=== PATIENT | female | born 1980 | race Caucasian/White ===

== ENCOUNTER 2021-09-05 09:32 | Outpatient (CLI) | payer MEDICAID, SELFPAY ==
--- NOTE | 2021-09-05 09:20 | CRLHL7_ITS ---
For Patients: As a result of the Century Cures Act, medical imaging exams and procedure reports are released immediately into your electronic medical record. You may view this report before your referring provider. If you have questions, please contact your health care provider. BILATERAL MAMMOGRAM WITH COMPUTER-AIDED DETECTION TECHNIQUE: CC and MLO views were obtained. These mammographic images have been obtained using full-field digital technique. These mammographic images were interpreted with the benefit of computer-aided detection. COMPARISON FILM: 06/12/2020, 04/28/2016. FINDINGS: The breasts are heterogeneously dense, which may obscure small masses IMPRESSION: There is no radiographic evidence for malignancy. ASSESSMENT: BI-RADS Category 1: Negative RECOMMENDATION: Routine screening mammogram in 1 year. A lay language report of this examination will be provided to the patient. Thai Avila M.D. Diagnostic Radiologist [email or web address] PREMA/letty saenz/Dictated by: Thai Avila MD @ 09/18/2021 11:30:00 AM (Electronically Signed)
== END 2021-09-05 09:33 | disposition home or self-care (01) ==
LOC: MAMMO 09:34
PROVIDERS: Visit Provider Physician Assistant
DX: Z12.31 Encounter for screening mammogram for malignant neoplasm of breast (principal); R92.2 Inconclusive mammogram
CPT/HCPCS: 77063; 77067

== ENCOUNTER 2021-09-17 11:22 | Inpatient (IN) | payer MEDICAID, SELFPAY ==
[2021-09-17] VITALS (32 sets, daily range): BP systolic 131–159; BP diastolic 85–101; PULSE 66–81; RESP 14–16; TEMP 35.7–37.1; O2SAT 98–100; BMI 21.7
[2021-09-17] MEDS: LACTATED RINGERS 1000 ML 1,000 ML 125 ML IV ×2 (11:30→19:53)
[2021-09-17 11:41] LABS: Hemoglobin* 11.6 gm/dL (12.0-16.0)
[2021-09-17 12:02] LABS: Ur HCG Qualitative* Negative (Negative)
--- NOTE | 2021-09-17 12:28 | P.PCN_ITS ---
Procedure Note Time Seen by Provider: 12:28 Date Seen: 09/17/21 Date of procedure: 09/17/21 Will [facility] bill your pro fee for this procedure?: Yes Procedure Description: DATE: 09/17/2021 REFERRING PHYSICIAN/PROVIDER: GERARDO Gan PREOPERATIVE DIAGNOSIS: 41-year-old with menorrhagia and uterine fibroids. POSTOPERATIVE DIAGNOSIS: Same. NAME OF PROCEDURE: Total abdominal hysterectomy. Bilateral salpingectomies. Diagnostic cystoscopy. SURGEON: Bridgett Christianson MD WATER SUPPLY ENGINEER: Theresa Goldman MD. ANESTHESIA: General endotracheal. TAPS block COMPLICATIONS: none ESTIMATED BLOOD LOSS: 150 ml URINE OUTPUT: 50 mL clear urine at the end of the procedure IV FLUID: 2800 mL DRAINS: Villagran to gravity. FINDINGS: On exam under anesthesia the uterus was palpable 2 cm below the umbilicus. On bimanual exam adnexa were without mass or fullness palpable. On laparotomy the uterus was extremely enlarged with an intramural fibroid that was calcified and firm. Both ovaries and fallopian tubes appeared normal. There were thick adhesions of the bladder to the anterior wall of the uterus and vagina PROCEDURE: After obtaining informed consent, the patient was taken to the operating room where general anesthesia was obtained without difficulty. She was prepared and draped in the normal sterile fashion in the dorsal supine position. A Villagran catheter was inserted sterilely into the bladder. A Pfannenstiel skin incision was made with a scalpel. This incision was carried down to the underlying layer of fascia with the Bovie. The fascia was incised in the midline and the incision extended laterally. The superior and inferior aspects of the fascial incision were grasped with Leobardo clamps and the underlying rectus muscles dissected off sharply. The rectus muscles were in the midline. The underlying peritoneum was identified, grasped with 2 Katie clamps and entered with Cochran scissors. The peritoneal incision was extended superiorly and inferiorly with good visualization of the bladder. The patient was placed in some mild Trendelenburg positioning. The bowels were packed cephalad using a large moistened laparotomy sponge. The Steven O retractor was placed in the incision. This provided excellent visualization of the pelvis. The pelvis was inspected with the findings noted above. Edwin clamps were placed at the cornua bilaterally for traction. Both uret ers were identified along their courses within the pelvic sidewall by palpation, patient patient body habitus made limited visualization. The right fallopian tube was grasped with a Dewey clamp and the fallopian tube removed using the Exact LigaSure dissecting forceps in sequential pedicles starting at the fimbriated end of the fallopian tube. The fallopian tube was then removed from the cornual and of the uterus and sent to pathology.The right round ligament was doubly clamped with Leobardo clamps, transected, and suture ligated with 0 Vicryl. The anterior leaf of the broad ligament was opened to the midline from the right side. Down to the level of the cervix. The right ovarian ligament was then isolated, clamped across with 2 Martell clamps, transected, and doubly suture ligated with 0 Vicryl. Hemostasis was observed. The uterine vessels were skeletonized on the right side. The vessels were clamped across with a Martell and a straight clamp, transected, and suture ligated. Excellent hemostasis was obtained. Attention was then turned to the left side. The left fallopian tube was grasped with a Johana clamp and removed similar manner to the right fallopian tube using the Exact LigaSure dissecting forceps. The left round ligament was clamped with 2 Leobardo clamps, transected, and suture ligated with 0-Vicryl. The anterior leaf of the broad ligament was opened from the left side to the midline. The bladder flap was then created bluntly. The bladder was further pushed caudally with a sponge stick. The left uterine vessels were skeletonized and then clamped across with Martell clamps, transected, and suture ligated. Excellent hemostasis was obtained. At this point the enlarged uterus was removed from the cervix using Cochran scissors. The cervix was then grasped with 2 Leobardo clamps. After both sides of the uterine blood vessels were clamped, divided and suture-ligated. The bladder was mobilized inferiorly using a sponge stick and sharp dissection. The uterus was then removed from the cervix just below the level of the uterine blood vessels to promote visualization. The remaining cardinal and uterosacral ligament attachments on both sides were c lamped with straight Martell clamps adjacent to the lower uterine segment and cervix, transected and suture ligated with 0 Vicryl. Excellent hemostasis was obtained. Two Martell clamps were placed across the vaginal cuff angles. The cervix was then transected and passed off the field. The vaginal cuff angles were fixed with Martell stitches of 0 Vicryl. The intervening vaginal cuff was closed with [id number] sutures of 0 Vicryl. There were multiple small blood vessels that were oozing between the bladder flap and the anterior vaginal wall. These were vaginal perforators. The anterior vaginal wall was oversewn with 2-0 chromic in a running locked manner. The remainder of bleeding was controlled with bipolar cautery. The abdomen and pelvis were then copiously irrigated. Small bleeding vessels were isolated with DeBakey clamps and cauterized for hemostasis. The.Villagran catheter was briefly removed. A diagnostic cystoscopy was then performed and verify that there was no evidence of injury to the bladder dome or trigone. Fluorescein was used to identify ureteral jets within the bladder to confirm ureteral function. The cystoscope was removed and Villagran catheter replaced. Attention was returned to the abdomen. The pelvis irrigated again with sterile water and hemostasis confirmed. A piece of Surgicel was placed between the anterior vaginal wall and the bladder f lap to confirm hemostasis. All laparotomy sponges and instruments were then removed. The subfascial tissues were carefully inspected and hemostasis assured. The fascia was re-approximated in a running fashion with a looped 0 Maxon loop suture. The subcutaneous tissues were copiously irrigated and hemostasis assured using bipolar cautery. The subcutaneous adipose layer was undermined to promote skin approximation. The subcutaneous adipose layer was re-approximated Using 3-0 plain gut interrupted sutures. The skin was closed in a subcuticular fashion with 4-0 Monocryl. Exofin skin adhesive applied and a Methaplex dressing placed. The patient tolerated the procedure well. Sponge, lap, needle, instrument counts were reported as correct x2. The patient was taken to recovery room michelle ke and in stable condition. She received 2 g of IV Ancef preoperatively and 30 mg IV Toradol postoperatively. The uterus was weighed at the conclusion of the procedure, weight was 820 g in the operating room. PATHOLOGY SPECIMEN(S): Uterus, cervix, left fallopian tube, right fallopian tube. Surgeon: Bridgett Christianson MD Condition: stable Disposition: PACU
--- NOTE | 2021-09-17 14:41 | SUR.OPER ---
16FR ENRIQUEZ CATHETER PLACED BY Josué AT 14:18
--- NOTE | 2021-09-17 14:52 | SUR.OPER ---
PATIENT QUESTIONS ANSWERED SATISFACTORILY PREOPERATIVELY. PATIENT BROUGHT TO OR #4 PER CART. Patient positioned supine on OR #2 bed for the intubation. Pt. legs then moved into the lithotomy position for the procedure. Perioperative team supported arms bilaterally on arm boards. Final approval of positioning by surgeon.
--- NOTE | 2021-09-17 14:57 | W.ANESCHARGE ---
Anesthesia Charges Start Date/Time Anesthesia Start Date: 09/17/21 Anesthesia Start Time: 13:53 Stop Date/Time Anesthesia Stop Date: 09/17/21 Anesthesia Stop Time: 17:05 Summary Emergency: No
--- NOTE | 2021-09-17 15:49 | P.NB_ITS ---
Nerve Block Nerve Block Date Seen: 09/17/21 Type of block requested by surgeon for post-operative analgesia: TAP Side: bilateral Time out performed: Yes Verification of patient name: Yes Verification of date of : Yes Site marking: site marked Name of person performing procedure: Devan Continuous monitoring Was continuous monitoring of O2 sat, B/P, nuclear monitoring technician, recorded every 15 minutes?: Yes Procedure Checklist: sterile prep, needles and gloves Ultrasound guided. Images saved: Yes Medications given in 5ml increments after negative aspiration: Marcaine %: 0.25 mL: 30 Needle gauge: 20 and Exparel mL: 10 Patient tolerated procedure well: Yes Additional comments: Needle noted adjacent to nerve
--- NOTE | 2021-09-17 17:03 | P.GYNPRC_ITS ---
Procedure Note Date Seen: 09/17/21 Procedure Details: PREOPERATIVE DIAGNOSIS: Myomatous uterus, history of sections x3 POSTOPERATIVE DIAGNOSIS: Myomatous uterus, history of sections x3 PROCEDURE: Total abdominal hysterectomy, bilateral salpingectomies, diagnostic cystoscopy SURGEON: Meghan POWER GENERATION TURBINE ROOM OPERATOR: Jones ANESTHESIA: General endotracheal COMPLICATIONS: None ESTIMATED BLOOD LOSS: See operative report by Dr. Christianson FINDINGS: Enlarged fibroid uterus, normal ovaries and fallopian tubes bilaterally. Normal cystoscopy. PROCEDURE NOTE: Please see the operative report by Dr. Christianson for full details of the procedure. I was asked to assist. I was scrubbed in for the entire procedure until closure of the abdominal incision. I provided assistance with the laparotomy, lysis of adhesions, visualization and retraction, and with the hysterectomy and bilateral salpingectomies from the right side, as well as with hemostasis and closure of the vaginal cuff, peritoneum, and fascia.
[2021-09-17] MEDS: HYDROmorphone 0.5 mg/0.5 ml inj IVP ×2 (17:12→19:54)
[2021-09-17] MEDS: OXYCODONE 5 MG TABLET PO (22:05)
[2021-09-17] MEDS: ONDANSETRON 2 MG/ML inj 4 MG IVP (23:41)
[2021-09-18] VITALS (9 sets, daily range): BP systolic 115–133; BP diastolic 74–88; PULSE 69–120; RESP 16–18; TEMP 36.6–37.2; O2SAT 97–100
[2021-09-18] MEDS: KETOROLAC 30 MG/ML inj IVP ×2 (00:16→05:31)
[2021-09-18] MEDS: PROMETHAZINE 25 MG/ML INJ 12.5 MG IV ×2 (00:34→09:25)
[2021-09-18] MEDS: HYDROmorphone 0.5 mg/0.5 ml inj IVP (01:58)
[2021-09-18] MEDS: LACTATED RINGERS 1000 ML 1,000 ML 125 ML IV (04:31)
[2021-09-18] MEDS: ONDANSETRON 2 MG/ML inj 4 MG IVP (05:29)
--- NOTE | 2021-09-18 08:50 | P.GYNPN_ITS ---
DELIVERY DIRECTOR - A/P Assessment and plan (1) Status post total abdominal hysterectomy: Start date: 09/17/21 Start time: 14:00 Problem details: with bilateral salpingectomy Status: Acute Assessment and Plan: POstop care Plan Postop day 1. Status post total abdominal hysterectomy, bilateral salpingectomy and diagnostic cystoscopy Postoperative Procedures: Procedures Operation Date: 09/17/21 13:10 Actual Procedure Side Surgeon p Total Abd Hysterectomy, bilateral Salpingectomy Joe Solis MD Postoperative day: 1 Postoperative status: doing well Postoperative plan: routine post-op care, advance diet and other (Postop day 1 hemoglobin is pending. Discontinue Quinn catheter. Encourage ambulation. Planning discharge home tomorrow.) Time Spent With Patient Time: Total time spent is greater than 50% in coordination of care (as documented) at patient's floor/unit and/or counseling patient: Time with patient: less than 15 minutes DELIVERY DIRECTOR- PN:Subj Post-Op Subjective Time Seen by Provider: 08:15 Date Seen: 09/18/21 Post Operative Details: Post-operative day number 1: status post total abdominal hysterectomy, bilateral salpingectomy, diagnostic cystoscopy Subjective: pain is well controlled, patient reports nausea and other (States her pain is relatively well controlled. She had problems with nausea and emesis after taking 2 tablets of oxycodone on an empty stomach at midnight. I recommended not taking narcotic pain medication on a empty stomach: Take it with either crackers or toast and have the nurse give her Zofra) DELIVERY DIRECTOR-PN: Obj Exam Physical Exam: Vital signs: Temp Pulse Resp BP Pulse Ox 98.5 F 75 18 115/74 97 09/18/21 03:00 09/18/21 03:00 09/18/21 03:00 09/18/21 03:00 09/18/21 03:00 Narrative: General: Pleasant, , well groomed, woman in no acute distress. Vital signs: Her medical record. Heart: Regular rate and rhythm without gallop, rub or murmur. Chest: Clear auscultation bilaterally. Abdomen: Appropriately tender to palpation. Mildly distended. Normal bowel sounds throughout. No CVA or flank tenderness. Incision: Dressing removed. Clean, dry and intact with sutures and skin adhesive gel. Extremities: SCDs in place. No edema, pain or cyanosis. Urinary Catheter Management: Urethral: Cath placed during this visit: yes Urethral indwelling: Yes Reason for continuing: decision to DC catheter (D/C quinn today) Insertion date: 09/17/21 Insertion time: 13:00 DELIVERY DIRECTOR - PN: Obj Data Labs Labs: Laboratory Results - last 24 hr 09/17/21 09/17/21 09/17/21 11:22 11:33 11:33 Hgb 11.6 L Urine HCG, Qual Negative Blood Type A Positive Antibody Screen NEGATIVE Procedures Procedures Performed: Postop rounding.
[2021-09-18] MEDS: SODIUM CHLORIDE 0.9 % (FLUSH) 10 ML SYRINGE IVF (09:26)
[2021-09-18] MEDS: LORazepam 0.5 MG TABLET PO (09:26)
[2021-09-18] MEDS: diphenhydrAMINE 25 MG CAPSULE PO (09:27)
[2021-09-18] MEDS: IBUPROFEN 600 MG TABLET PO ×2 (12:59→17:56)
--- NOTE | 2021-09-18 16:24 | PC.NURSE ---
Pt had extreme nausea at initial assessment. Please see eMar for multiple medications provided for her sx. Pt was able to rest well w/o vomiting after she got up to the recliner. Mother Rebecca supportive at bedside. Later in the shift pt was able to ambulate in the hallway with SBA, splinting her abdomen with a pillow and pain 3-4. Tolerating regular diet w/o further nausea. IV to SL and quinn catheter d/c'ed. Pt has not voided since quinn removed. Report to Romi TORREZ for evening shift.
[2021-09-18] MEDS: SIMETHICONE 80 MG TAB.CHEW 160 MG PO (17:20)
[2021-09-18 21:09] LABS: Hematocrit 23.4 % (33.0-51.0); Mean Corpuscular HGB Conc 31 gm/dL (32-36); Mean Corpuscular Hemoglobin 26 pg (26-34); Mean Corpuscular Volume 83 fL (80-100); Platelet Count* 275 K/uL (140-440); Red Blood Count 2.83 m/uL (4.00-5.20); White Blood Count* 12.12 K/uL (4.50-11.00)
[2021-09-18 21:12] LABS: Hemoglobin* 7.3 gm/dL (12.0-16.0)
--- NOTE | 2021-09-18 22:41 | PC.NURSE ---
Shift [id number]- Patient rates pain 2-4/10 this shift, radiating to right shoulder. Simethicone and scheduled pain medication given with relief. She denies nausea and is tolerating advancing diet. Heart rate is elevated- MD notified- see new orders. Patient denies palpitations, chest pain, or shortness of breath. Abdomen is soft, but tender to right lower side. Incision site is somewhat edematous, but approximated. Abdominal binder remains in place. Patient is voiding large amounts. She walks the halls and tolerates well.
[2021-09-19] VITALS (13 sets, daily range): BP systolic 105–139; BP diastolic 76–89; PULSE 82–95; RESP 16–18; TEMP 36.8–37.1; O2SAT 97–100
[2021-09-19] MEDS: IBUPROFEN 600 MG TABLET PO ×2 (01:10→08:19)
--- NOTE | 2021-09-19 06:48 | PC.NURSE ---
END OF SHIFT NOTE: PT PLEASANT AND COOPERATIVE. VSS AND WNL ON RA. AFEBRILE. PT VOIDING WITHOUT ISSUE; URINE COLOR LIGHT RHINA, PINK WITH FEW CLOTS NOTED. AMBULATES INDEPENDENTLY WITHOUT DIFFICULTY. PT RECEIVED 2 UNITS OF PRBC. NO ADVERSE REACTIONS NOTED. LOWER ABDOMINAL INCISION INTACT AND OPEN TO AIR. ORAL INTAKE ADEQUATE. SLEPT WELL THROUGHOUT THE NIGHT.
[2021-09-19 07:17] LABS: Hemoglobin* 9.5 gm/dL (12.0-16.0)
[2021-09-19] MEDS: DOCUSATE SODIUM 100 MG CAPSULE PO (08:20)
--- NOTE | 2021-09-19 12:15 | PC.NURSE ---
Patient pleasant and cooperative. surgical site glued and SEAN. Ibuprofen for pain, pt denied need for narcotics at this time. pt up ambulating in halls and tolerating well. urine [place] related to drainage. pt denies passing clots post op. LS CTA. BS active. discharge instructions provided and pt verbalized understanding. medications sent to [facility]. spouse present for transport. pt discharged with f/u appointment on 10/[address] Goldman. Pt d/c'd via w/c at 1100 home with spouse.
[2021-09-19 23:42] LABS: Slide Review Reflex No
--- NOTE | 2021-11-05 11:15 | P.DS_ITS ---
DS: Providers Provider Date Seen: 09/19/21 Date of admission: 09/17/21 11:22 Primary care physician: Dm Rush MD Admitting Clinician: Bridgett Christianson MD Attending Physician on discharge: Bridgett Christianson MD DS: Diagnosis Discharge Diagnosis (1) Status post total abdominal hysterectomy: Status: Acute Problem details: with bilateral salpingectomy COMMISSIONING EDITOR-Discharge Summary Hospital Course Hospital Course Narrative: Patient is a 41 year old woman admitted for Total abdominal hysterectomy with bilateral salpingectomy and cystoscopy on 09/17/2021. Intraoperative findings were notable for enlarged uterus with intramural fibroid, and thick adhesions of the bladder to the anterior uterus. Surgery was uncomplicated. Indication for surgery: Symptomatic uterine fibroids. Postoperative course was notable only for symptomatic anemia, with hemoglobin chiara 7.3. She received 2 units packed red cells in transfusion. Vitals have since been stable. She has remained afebrile. On postoperative day 2, she reports the pain is well controlled. She has been able to ambulate Without difficulty. She is tolerating regular diet. She is passing flatus. Villagran catheter has been removed, and she is voiding without difficulty. Time Spent with Patient Time attestation: Total time spent providing and/or coordinating discharge services: Time spent: Less than 30 minutes COMMISSIONING EDITOR - Exam Physical Exam: Vital signs: Temp Pulse Resp BP Pulse Ox O2 Del Method 98.5 F 84 16 139/89 98 09/19/21 08:38 09/19/21 08:38 09/19/21 08:38 09/19/21 08:38 09/19/21 08:38 09/19/21 08:38 Narrative: General: Pleasant, no acute distress Heart: Regular rate and rhythm, no murmur or gallop Lungs: Clear to auscultation bilaterally Abdomen: Normoactive bowel sounds in all 4 quadrants. Soft, appropriately tender, no rebound or guarding, incision clean, dry, and intact Lower extremities: No edema or erythema COMMISSIONING EDITOR - DS: Data Procedures Procedures: Procedures Operation Date: 09/17/21 13:10 Actual Procedure Side Surgeon p Total Abd Hysterectomy, bilateral Salpingectomy Bilateral Bridgett Solis MD Discharge Plan Discharge Disposition: Home, Self-Care Date of Admission: 09/17/21 11:22 Attending Provider on Discharge: lAexandra Wilks Primary Care Provider: Dm Rush Condition: Stable Anticipated Discharge Date/Time: 09/19/21 09:34 Discharge Medications: New docusate sodium 100 mg Capsule 100 mg PO BID PRN (Reason: Constipation) Qty: 60 0RF ibuprofen 600 mg Tablet 600 mg PO Q6H Qty: 60 0RF No Action Tylenol Discharge Orders: Discharge Order (Routine); Ordered 09/19/21 Ordered By: Alexandra Wilks Patient Education: Iron Supplements (By mouth), Acetaminophen (By mouth), Ibuprofen (By mouth), Laxative, Stool Softeners (By mouth), Oxycodone, Rapid Release (By mouth), Surgical Site Infections (DC), Hysterectomy (DC) Activity Restrictions/Additional Instructions: Discharge instructions were reviewed with the patient including signs and symptoms of infection and home going medications. Symptoms to report to doctor: -Bleeding that saturates more than one pad per hour ?-Passing clots larger than the size of a golf ball ?-Pain not relieved by prescribed medication ?-Fever above 100.4 degrees Fahrenheit ?-A foul vaginal odor ?-Difficulty in emotions, mood and functions ?-Thoughts of hurting yourself and/or ?-Painful, reddened area in your breast ?-Any drainage, redness or tenderness in your IV/epidural site ?-Severe headache that doesn't improve after taking medications ?-Changes in vision, including temporary loss of vision, blurred vision, and/or light sensitivity ?-Upper abdominal pain (usually under ribs on the right side) ?-Decrease in urination or painful, frequent urinating ?-Chest pain ?-Shortness of breath ?-Tenderness or pain with redness and/swelling in the calf(s) of your leg? ? No lifting greater than 20 pounds for 6 weeks. Nothing per vagina for 6 weeks. Off work or school for 6 weeks. No driving well taking narcotic pain medications: Approximately 2 weeks. No high impact or core exercises for 6 weeks. Walking and walking up and down stairs are safe. ? Follow up with your surgeon in 2-3 weeks for a postoperative visit or sooner as needed. Activity Level: No strenuous activity Activity Detail: Hospital Course: Senia was admitted to the hospital on 09/17/2021 for a scheduled total abdominal hysterectomy, bilateral salpingectomy and diagnostic cystoscopy. Her surgery was uncomplicated. Her postoperative course was also uncomplicated. By postoperative day 2, she was tolerating a regular diet, ambulating without difficulty, passing flatus and pain was well controlled with oral pain medications. She would like to be discharged home today. Labs: Preoperative hemoglobin 11.6, postoperative hemoglobin 7.3 on the evening of postoperative day 1. She was noted to be tachycardic at that time, but otherwise asymptomatic. She received 2 units of packed red cells in transfusion. Hemoglobin on the morning of postoperative day 2 was 9.5. Objective: General: Alert and oriented x3. Pleasant, woman in no acute distress. Vital signs: See EMR. Heart: Regular rate and rhythm without gallop, rub or murmur. Chest: Clear to auscultation bilaterally. Abdomen: Soft, nontender, nondistended with normal bowel sounds.. Incision(s): Clean, dry and intact w/ sutures and skin adhesive. Pelvic: Minimal vaginal bleeding, remainder of pelvic exam deferred. Extremities: No pain, edema, cyanosis or clubbing. Assessment: 41-year-old postoperative day 2 from a total abdominal hysterectomy with bilateral salpingectomy doing well. Plan: 1. Discharge home today. 2. Activity restrictions reviewed with the patient. 3. Return to clinic to see Dr. Christianson for a postoperative visit in 2-3 weeks. Discharge Diet: Regular Follow Up Appointments: Dm Rush MD [Primary Care Provider] - Theresa Goldman MD [Staff Physician] - 10/04/21 9:30 am Forms: Work/Release Restrictions
== END 2021-09-19 11:00 | disposition home or self-care (01) | DRG 519 ==
LOC: OR 09-18 05:31 → MEDSURG 09-18 05:31
PROVIDERS: Admitting Provider Obstetrics & Gynecology; PCP Family Medicine; Visit Provider Obstetrics & Gynecology
PROC: 0UT94ZZ Resection of Uterus, Percutaneous Endoscopic Approach (ICD-10-PCS; CPT 52000; principal; 2021-09-17 13:00)
DX: D25.1 Intramural leiomyoma of uterus (principal); N92.0 Excessive and frequent menstruation with regular cycle; R11.2 Nausea with vomiting, unspecified; D62 Acute posthemorrhagic anemia; E04.9 Nontoxic goiter, unspecified; E78.00 Pure hypercholesterolemia, unspecified
CPT/HCPCS: 00840; 36415; 36430; 81025; 85018; 85025; 85027; 86850; 86900; 86901; 86922; 88307; A9270; C9290; J0330; J1100; J1170; J1885; J2250; J2405; J2550; J2704; J3010; J3475; J3490; J7120; P9016

== ENCOUNTER 2021-10-23 19:53 | Emergency (ER) | payer MEDICAID, SELFPAY ==
[2021-10-23 20:27] VITALS: BP 146/82; PULSE 119; RESP 18; TEMP 38.8; O2SAT 98; BMI 21.6
[2021-10-23 21:03] LABS: Appearance Urine Cloudy (Clear); Bilirubin Urine Negative (Negative); Blood Urine 2+ (Negative); Color Urine Yellow (Yellow); Glucose Urine Negative (Negative); Ketones Urine 1+ (Negative); Leukocyte Esterase Urine 1+ (Negative); Nitrite Urine Positive (Negative); Protein Urine 3+ (Negative)
[2021-10-23 21:08] LABS: Squamous Epithelial Cell Urine Few (None-Few)
[2021-10-23 21:09] LABS: Bacteria Urine Many
[2021-10-23 21:29] LABS: PCR FLU A Negative PCR FLU A (Negative); PCR FLU B Negative PCR FLU B (Negative)
[2021-10-23 21:52] LABS: SARS PCR* Negative SARS-CoV-2 (Negative)
--- NOTE | 2021-10-23 22:59 | ED.GENADULT ---
HPI - General Adult General Date Seen: 10/23/21 Chief complaint: Fever Stated complaint: Fevers/Abdominal Pain Time Seen by Provider: 10/23/21 22:26 Source: patient and family Mode of arrival: ambulatory Limitations: no limitations History of Present Illness HPI narrative: Patient is a delightful 41-year-old female who presents here with a fever lower abdominal discomfort, mild constipation, dysuria frequency of urination. She has had previous UTIs and says this feels similar to them. What worries her however she underwent a hysterectomy at this institution approximately 3 weeks ago. She has had a little bit of back discomfort with this, no rashes, no coughing or COVID like symptoms. She is unvaccinated for COVID. She took 2 home test which were negative. Denies any other vomiting, appetites been good, and she has had no real significant vaginal discharge. Symptoms have been going on for the past 2-3 days, she waited a significant time. Our ER to be seen. Location: abdomen Radiation: back Severity: moderate Quality: sharp Pain Consistency: constant Associated symptoms: denies other symptoms Treatments prior to arrival: none Related Data Home Medications Medication Instructions Recorded Confirmed Tylenol 10/23/21 Previous Rx's Medication Instructions Recorded rosuvastatin 20 mg tablet 20 mg PO QDAY #90 tabs 09/05/21 docusate sodium 100 mg capsule 100 mg PO BID PRN Constipation #60 09/19/21 caps ferrous sulfate 325 mg (65 mg 325 mg PO BID 2 weeks #28 tabs 09/19/21 iron) tablet ibuprofen 600 mg tablet 600 mg PO Q6H #60 tabs 09/19/21 Allergies Allergy/AdvReac Type Severity Reaction Status Date / Time No Known Allergies Allergy Unknown Verified 10/23/21 20:32 Review of Systems Status of ROS: Reports: 10 or more systems reviewed and unremarkable except as noted in History and below PFSH PFSH Surgical History Previous section Status post total abdominal hysterectomy (09/17/21) Family History Father Coronary artery disease High blood pressure Hyperlipidemia Diabetes Mother Coronary artery disease Hyperlipidemia High blood pressure Thyroid disease Paternal Grandfather Colon cancer Maternal Grandmother Stroke Social History 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 Ages 12, 14, 16. Lives in [place] and works in [place]. Habits: Walks 3 times per week for exercise. No tobacco or recreational drug use. Alcohol use is 1 or 2 drinks per week. Smoking Status: Never smoker How often do you have a drink containing alcohol: 2-4 times a month AUDIT-C Alcohol total score: 2 Non-prescribed substance use: denies use Exam Narrative: Exam Narrative: Patient is peaking normally, problem with slurring words, oriented x3. Head eyes ears nose and throat exam show equal pupils, no scleral icterus, extraocular muscles are normal, no facial droop, speech is normal, trachea normal and midline. Thyroid normal midline palpable not enlarged. Chest shows symmetrical rise bilaterally, normal auscultation with no wheezes, no increased work of breathing, no overt bruising or lesions seen, no tenderness is noted on auscultation. Heart sounds normal with no S3-S4 no murmurs clicks or gallops. Abdomen shows no obvious masses or hepatosplenomegaly, no organomegaly, bowel sounds are normal in all quadrants. No tenderness is noted also in all quadrants. Upper and lower extremities show normal power, normal range of motion, pulses are normal, sensations normal, fine motor movements are normal, pelvis is stable to rocking. Cervical spine shows normal range of motion, and palpably not tender. Thoracic spine shows normal range of motion, and palpably not tender, lumbar spine shows no tenderness to palpation percussion and is otherwise normal range of motion. Skin shows no rashes, petechiae or eccymosis. Mild tenderness on percussion over the CVA areas bilaterally Const: Vital Signs, click to edit/add: Vital Signs - 24 hr 10/23/21 20:27 Temperature 102 F H Pulse Rate [Left P ulse Oximeter] 119 H Respiratory Rate 18 Blood Pressure [Ri ght Upper Arm] 146/82 H Pulse Oximetry 98 Oxygen Delivery Me thod Room Air Documenting provider has reviewed patient's vital signs: yes Course Vital Signs Vital signs: Initial Vital Signs Temperature 102 F H 10/23/21 20:27 Temperature Source Temporal Artery Scan 10/23/21 20:27 Pulse Rate 119 H 10/23/21 20:27 Respiratory Rate 18 10/23/21 20:27 Blood Pressure 146/82 H 10/23/21 20:27 Blood Pressure Mean 103 10/23/21 20:27 Blood Pressure Position Sitting 10/23/21 20:27 Pulse Oximetry 98 10/23/21 20:27 Oxygen Delivery Method 10/23/21 20:27 Vital Signs Temperature 102 F H 10/23/21 20:27 Pulse Rate 119 H 10/23/21 20:27 Respiratory Rate 18 10/23/21 20:27 Blood Pressure 146/82 H 10/23/21 20:27 Pulse Oximetry 98 10/23/21 20:27 Oxygen Delivery Method 10/23/21 20:27 Temperature 102 F H 10/23/21 20:27 Pulse Rate 119 H 10/23/21 20:27 Respiratory Rate 18 10/23/21 20:27 Blood Pressure 146/82 H 10/23/21 20:27 Pulse Oximetry 98 10/23/21 20:27 Oxygen Delivery Method 10/23/21 20:27 Medical Decision Making MDM Narrative Medical decision making narrative: Life-threatening differential diagnosis is include meningitis, encephalitis, pneumonia, intra-abdominal infection, bacteremia, other differential diagnosis include but are not limited to viral upper respiratory tract infection, strep, urinary tract infection, skin infection, osteomyelitis, influenza, fungal infections, diskitis, epidural abscess, or fever of unknown origin. I do think this is a UTI after reviewing the laboratory work, this may be even early pyelonephritis, she tells me that Macrobid has worked well in the past for her, but given the fact this could be a pyelonephritis I think Levaquin is a better option here. We went over the risks benefits and side effects and I would like to dose her with this. She was comfortable with this, she can use Tylenol ibuprofen as an outpatient. Return here if increasing abdominal pain chest pain or other symptoms which we discussed. Medical Records Medical records reviewed: Yes I reviewed the patient's medical records Lab Data Lab results reviewed: Yes I reviewed the patient's lab results Labs: Lab Results 10/23/21 10/23/21 Range/Units 20:38 20:40 Urine Color Yellow (Yellow) Urine Appearance Cloudy A (Clear) Urine pH 7.0 (5.0-8.5) Ur Specific [place] 1.020 (1.000-1.030) Urine Protein 3+ A (Negative) Urine Glucose (UA) Negative (Negative) Urine Ketones 1+ A (Negative) Urine Blood 2+ A (Negative) Urine Nitrite Positive A (Negative) Urine Bilirubin Negative (Negative) Urine Urobilinogen 4.0 (0.2-1.0) Ur Leukocyte Esterase 1+ A (Negative) Urine RBC 2-5 A (0-2) Urine WBC 10-25 A (0-5) Ur Squamous Epith Cells Few (None-Few) Urine Bacteria Many A (None) SARS-CoV-2 (PCR) Negative SARS-CoV-2 (Negative) Influenza Type A (PCR) Negative PCR FLU A (Negative) Influenza Type B (PCR) Negative PCR FLU B (Negative) Discharge Plan Discharge Clinical Impression: Urinary tract infection Patient Disposition: Home, Self-Care Condition: Stable Instructions: Urinary Tract Infection in Women (DC) Additional Instructions: Home rest lots of fluids Tylenol or ibuprofen tonight will help amazingly make you feel better, start the Levaquin tonight, increasing abdominal pain nausea vomiting then I suggest follow-up. Prescriptions: No Action rosuvastatin 20 mg tablet 20 mg PO QDAY Qty: 90 1RF docusate sodium 100 mg Capsule 100 mg PO BID PRN (Reason: Constipation) Qty: 60 0RF ibuprofen 600 mg Tablet 600 mg PO Q6H Qty: 60 0RF ferrous sulfate 325 mg (65 mg iron) tablet 325 mg PO BID 14 Days Qty: 28 0RF Tylenol Follow Up/Referrals: Dm Rush MD [Primary Care Provider] - Stand Alone Forms: MyHealth Info Instructions
[2021-10-23] MEDS: levoFLOXacin 500 MG TABLET PO (23:31)
[2021-10-23] MEDS: ACETAMINOPHEN 500 MG TABLET 1000 MG PO (23:31)
== END 2021-10-23 23:40 | disposition home or self-care (01) ==
LOC: ED 22:47
PROVIDERS: Family Medicine; Emergency Provider Family Medicine; PCP Family Medicine
DX: N39.0 Urinary tract infection, site not specified (principal)
CPT/HCPCS: 81003; 81015; 87086; 87186; 87502; 87635; 99283; 99284; A9270

== ENCOUNTER 2021-11-01 08:15 | Outpatient (CLI) | payer MEDICAID, OTHER, SELFPAY ==
--- NOTE | 2021-11-01 08:15 | CRLHL7_ITS ---
For Patients: As a result of the Century Cures Act, medical imaging exams and procedure reports are released immediately into your electronic medical record. You may view this report before your referring provider. If you have questions, please contact your health care provider. INDICATION: Nontoxic goiter. TECHNIQUE: Ultrasound thyroid with alegria-scale and color Doppler analysis. COMPARISON: None. FINDINGS: Right lobe: 3.9 x 1.1 x 0.9 cm. Left lobe: 3.3 x 1.0 x 0.9 cm. Mildly heterogeneous echotexture. Nodules: Exophytic posterior inferior right thyroid nodule versus parathyroid lesion. The nodule is isoechoic to slightly hypoechoic solid circumscribed nodule with no echogenic foci. The nodule measures 9 x 8 x 6 mm. No other thyroid nodules. Color Doppler analysis demonstrates normal vascularity. The isthmus is normal. No evidence of lymphadenopathy. IMPRESSION: 1. Right inferior posterior thyroid TR3 nodule versus parathyroid adenoma or other lesion. Nodule measures 9 x 8 x 6 mm. 2. No evidence of goiter. The thyroid is slightly atrophic with heterogeneous echotexture. Dictated by Amandeep Pugh MD @ 11/01/2021 9:09:32 AM (Electronically Signed)
--- OUTSIDE RECORDS SUMMARY | 2021-11-01 08:18 | XMS_ITS | Clinical Summary ---
:1980 Author Organization [facility] [place] [address] Care Team Providers Name Role Phone Peter Greco MD Primary Care Provider Allergies No known active allergies Medications No known medications Active Problems Problem Noted Date Previous delivery, antepartum condition or co mplication 10/23/2009 Encounters Date Type Specialty Care Team Description 10/23/2021 Travel 10/23/2021 Nurse Triage Wander Cabrera MD Abdo ismael Injury 09/17/2021 Lab Requisition Bridgett Christianson MD from Last 3 Months Immunizations Name Administration Dates Next Due Tdap 10/26/2009 Social History Tobacco Use Types Packs/Day Years Used Date Never Smoker Smokeless Tobacco: Never Used Alcohol Use Standard Drinks/Week Comments Not Currently 0 (1 standard drink = 0.6 oz pure alcoho l) Sex Assigned at Date Recorded Not on file COVID-19 Exposure Response Date Recorded In the last 10 days, have you been in contact with No / Unsu re 10/23/2021 6:09 PM CDT someone who was confirmed or suspected to have Coronavirus/COVID-19? Obstetrics History Para Term AB IAB SAB Ectopic Multiple Living Live Births 4 2 2 0 1 0 1 0 0 2 2 Date Outcome GA Total Labor/2nd/3rd Weight Sex Delivery Anes PTL Manjula A 1 A5 Name Clin Labor 12/19 SAB 04 Comments: no D&C 05/2005 Term 41w0d 4h 00m/ 3.52 kg (7 lb 12 oz) F Spinal N Living Delivery Location: [place] Comments: 2 day induction - CPD & FTP 11/2006 Term 39w0d 3.54 kg (7 lb 13 oz) F Spinal N Living Delivery Location: [place] Comments: Repeat c/s Last Filed Vital Signs Vital Sign Reading Time Taken Comments Blood Pressure 122/95 09/05/2020 1:01 PM CDT Pulse 80 09/05/2020 1:01 PM CDT Temperature 36.6 ??C (97.8 ??F) 09/05/2020 1:01 PM CDT Respiratory Rate 16 09/05/2020 1:01 PM CDT Oxygen Saturation 99% 09/05/2020 1:01 PM CDT Inhaled Oxygen Concentration - - Weight 59.3 kg (130 lb 12.8 oz) 09/05/2020 1:01 PM CDT Height 165.8 cm (5' 5.28) 08/30/2020 1:37 PM CDT Body Mass Index 21.58 08/30/2020 1:37 PM CDT Plan of Treatment Health Maintenance Due Date Last Done Comments COVID-19 vaccine series (#1) 01/20/1979 Depression screening for age 12+ 1990 BMI (ht and wt on same day) for age 18+ 1996 Hepatitis C screening for age 18-79 1996 Tetanus booster 10/27/2019 10/26/2009 Influenza for age 9-49 10/31/2021 Pap test for age 21-65 07/04/2024 07/04/2021, 07/04/2021 Tdap Completed 10/26/2009 Procedures Procedure Name Priority Date/Time Associated Diagnosis Comme nts PATH TISSUE EXAM Routine 09/17/2021 3:40 PM Resul ts for this CDT procedure are i n the results section. LAB TRACKING EVENT Routine 09/17/2021 2:55 PM CDT from Last 3 Months Results PATH TISSUE EXAM (09/17/2021 3:40 PM CDT) Component Value Ref Test Analysis Performed At [facility] gist Range Method Time Signature Case Report Pathology Report ?Case: [id number] ? 09/19/2021 [facility] Authorizing Provider: ??Bridgett Celaya ?Collected: ? 09/17/2021 1540 ? 4:30 PM HEAL TH ? MD Ana María ? CDT LABORATORY-C Ordering Location: ? [facility] ?Received: ?09/17/20212057 ? EN TRAL Pathologist: ? Negrita Garnica MD ? LABORATORY Specimen: ?Uterus ? Final B) UTERUS WITH CERVIX AND FA LLOPIAN TUBES, TOTAL HYSTERECTOMY WITH BILATERAL SALPINGECTOMY: 09/19/2021 [facility] Regi ctronically Diagnosis 1. Cervix: No significant histologic abnormality 4:30 PM HEALTH signed by Danika, 2. Endometrium: Proliferative phase CDT LABORATORY-C Negrita Urias, 3. 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 Uterine serosa: Unremarkable LABORATORY at 4:30 PM 5. Fallopian tubes: Benign paratubal cysts, otherwise unrema rkable 6. Uterine weight: 796 grams 7. Negative for malignancy Clinical Myomatous uterus. 09/19/2021 [facility] Information 4:30 PM HEALTH CDT LABORATORY-C ENTRAL LABORATORY Gross A) Received in formalin, lab eled with the patient's name and uterus with bilateral fallopian tubes, is a 796 gram(uterus and cervix weight only), 15 x 10.5 x 10 cm hysterectomy specimen with detached 09/19 [facility] Description 4 x 3.5 x 2 cm cervix. The e ctocervical mucosa is smooth with a distinct squamocolumnar junction. The endocervical canal is patent. 4:30 PM HEALTH CDT LABORATORY-C The endometrium is red-pimentel s mooth and averages 0.3 cm thick. No endometrial lesions are identified. ??There is a solitary anterior pimentel whorled nodule measuring 9.8 x 9 x 8.2 cm. ??No discrete foci of he ENTRAL morrhage or necrosis are luh reciated. ??The myometrium is pimentel firm and trabecular. ??The myometrial thickness averages 1.7 cm cm thick. The serosa is smooth. LABORATORY The bilateral fimbriated fal lopian tubes are undesignated and averages 6 cm in length by 0.6 cm in diameter. ??Multiple smooth lined serous fluid-filled paratubal cystic structures are noted upon both t ubes surfaces ranging from 0 .1 to 0.8 cm in greatest dimension. ??No papillations are identified. Foot Drill Operator sections are submitted: 1. Anterior cervix 2. Posterior cervix 3. Anterior endomyometrium 4. Posterior endomyometrium 5-6. ??Fallopian tubes including entire fimbriated end 7-16. ??Sampling of pimentel whorled nodule Time and date in formalin: 1540 on 09/17/2021 [facility] 09/18/2021 Microscopic The final diagnosis is based on microscopic examination of appropriate sections of all specimens. 09/19/2021 JENNIFER ROSE Description 4:30 PM HEALTH CDT LABORATORY-C ENTRAL LABORATORY Additional 09/19/2021 [facility] Information Interpreted at [facility], Central Laboratory - [address], [place] [address] 4:30 PM HEALTH CDT LABORATORY-C ENTRAL LABORATORY Specimen Anatomical Collection Method Collection Time Receive d Time (Source) Location / / Volume Laterality Other SPECIMEN FROM 09/17/2021 3:40 PM 09/18/19 8:58 UTERUS / Unknown CDT PM CDT Bridgett Christianson MD PATHOLOGY/CYTOLOGY Performing Organization Address City/State/ZIP Code Phon e Number [facility] [address] [place] [address] LABORATORY-CENTRAL 2000 LABORATORY LAB TRACKING EVENT (09/17/2021 2:55 PM CDT) Specimen Anatomical Collection Method Collection Time Receive d Time (Source) Location / / Volume Laterality Other (Other) Client Collect / 09/17/2021 2:55 PM 08/30 8:45 Unknown CDT PM CDT Bridgett Christianson MD LAB BILL ONLY Performing Organization Address City/[facility]/ZIP [facility] Phon e Number [facility] [address] [place] [address] LABORATORY-CENTRAL 2000 LABORATORY from Last 3 Months Insurance Payer Benefit Plan / Subscriber ID Effective Dates Phone Addre ss Type Group BLUE CROSS BLUE CROSS OF [id number] 2020-Present [address] [place] [address] Advance Directives Latest Code Status on File Code Status Date Activated Date Inactivated Comments Full Code 10/23/2009 1:29 PM 10/26/2009 3:53 PM Full Code 10/23/2009 10:48 AM 10/23/2009 1:29 PM Care Teams Trimmer [employer] Relationship Specialty Start Date End Date Peter Greco MD PCP - General Family Practice 09/03/20
== END 2021-11-01 08:16 | disposition home or self-care (01) ==
LOC: US 08:16
PROVIDERS: PCP Family Medicine; Visit Provider Family Medicine
DX: E04.9 Nontoxic goiter, unspecified (principal)
CPT/HCPCS: 76536

== ENCOUNTER 2021-11-20 15:24 | Outpatient (CLI) | payer OTHER, SELFPAY ==
--- OUTSIDE RECORDS SUMMARY | 2021-11-20 15:27 | XMS_ITS | Clinical Summary ---
:1980 Author Organization [facility] [place] [address] Care Team Providers Name Role Phone Peter [...] oz) F Spinal N Living Delivery Location: [place] Comments: 2 day induction - CPD & FTP 11/2006 Term 39w0d 3.54 kg (7 lb 13 oz) F Spinal N Living Delivery Location: [place] Comments: Repeat c/s Last Filed Vital Signs [...] Component Value Ref Test Analysis Performed At [facility] gist Range Method Time Signature Case Report Pathology Report ?Case: [id number] ? 09/19/2021 [facility] Authorizing Provider: ??Bridgett Celaya ?Collected: ? 09/17/2021 1540 ? 4:30 PM HEAL TH ? MD Ana María ? CDT LABORATORY-C Ordering Location: ? [facility] ?Received: ?09/17/20212057 ? EN TRAL Pathologist: ? [...] in greatest dimension. ??No papillations are identified. Measurement Department Chief Clerk sections are submitted: 1. Anterior cervix 2. [...] LABORATORY Additional 09/19/2021 [facility] Information Interpreted at [facility], Central Laboratory - [address], [place] [address] 4:30 PM HEALTH CDT LABORATORY-C ENTRAL LABORATORY Specimen Anatomical Collection Method Collection Time Receive d Time (Source) Location / / Volume Laterality Other SPECIMEN FROM 09/17/2021 3:40 PM 09/18/19 8:58 UTERUS / Unknown CDT PM CDT Bridgett Christianson MD PATHOLOGY/CYTOLOGY Performing Organization Address City/State/ZIP Code Phon e Number [facility] [address] [place] [address] LABORATORY-CENTRAL 2000 LABORATORY LAB TRACKING EVENT (09/17/2021 2:55 PM CDT) Specimen Anatomical Collection Method Collection Time Receive d Time (Source) Location / / Volume Laterality Other (Other) Client Collect / 09/17/2021 2:55 PM 08/30 8:45 Unknown CDT PM CDT Bridgett Christianson MD LAB BILL ONLY Performing Organization Address City/[facility]/ZIP [facility] Phon e Number [facility] [address] [place] [address] LABORATORY-CENTRAL 2000 LABORATORY from Last 3 Months Insurance Payer Benefit Plan / Subscriber ID Effective Dates Phone Addre ss Type Group BLUE CROSS BLUE CROSS OF [id number] 2020-Present [address] [place] [address] Advance Directives Latest Code Status on File Code Status Date Activated Date Inactivated Comments Full Code 10/23/2009 1:29 PM 10/26/2009 3:53 PM Full Code 10/23/2009 10:48 AM 10/23/2009 1:29 PM Care Teams Olericulture Professor Relationship Specialty Start Date End Date Peter Greco MD PCP - General Family Practice 09/03/20
[2021-11-20 17:51] LABS: TSH With Reflex to FT4* 0.944 uIU/mL (0.270-4.200)
== END 2021-11-20 15:25 | disposition home or self-care (01) ==
PROVIDERS: PCP Family Medicine; Visit Provider Surgery
DX: E04.1 Nontoxic single thyroid nodule (principal)
CPT/HCPCS: 82310; 83970; 84443

== ENCOUNTER 2022-12-26 09:28 | Outpatient (CLI) | payer OTHER, SELFPAY ==
--- NOTE | 2022-12-26 09:15 | CRLHL7_ITS ---
For Patients: As a result of the Century Cures Act, medical imaging exams and procedure reports are released immediately into your electronic medical record. You may view this report before your referring provider. If you have questions, please contact your health care provider. BILATERAL DIGITAL SCREENING MAMMOGRAM WITH COMPUTER-AIDED DETECTION CLINICAL HISTORY: Routine screening exam. COMPARISON: 09/05/2021, 06/12/2020, 06/22/2019, 04/28/2019. TECHNIQUE: Digital mammogram in CC and MLO projections including computer-aided detection (CAD). BREAST COMPOSITION: The breasts are heterogeneously dense, which may obscure small masses. FINDINGS: RIGHT Breast: No suspicious findings. LEFT Breast: Focal asymmetric density is present upper outer quadrant 5 cm from the nipple. Post biopsy changes also noted more anteriorly. IMPRESSION: LEFT breast asymmetry/mass. RECOMMENDATIONS: Additional mammographic views of the LEFT breast including 3D spot compression CC/MLO. LEFT breast ultrasound may also be required. BI-RADS Category 0: Incomplete: Need Additional Imaging Evaluation and/or Prior Mammograms for Comparison The [facility] will contact the patient for follow-up. A lay language report of this examination will be provided to the patient. Dictated by Thai Avila MD @ 12/26/2022 10:45:06 AM jj/Dictated by: Thai Avila MD @ 12/26/2022 10:45:00 AM (Electronically Signed)
--- NOTE | 2022-12-26 11:15 | CRLHL7_ITS ---
For Patients: As a result of the Cures Act, medical imaging exams and procedure reports are released immediately into your electronic medical record. You may view this report before your referring provider. If you have questions, please contact your health care provider. INDICATION: NON TOXIC THYROID NODULE COMPARISON: 11/01/2021 TECHNIQUE: Medeiros scale and color Doppler images were acquired of the thyroid gland. FINDINGS: The thyroid gland demonstrates normal uniform echogenicity and has a smooth outer contour. The right lobe measures 4.2 x 1.0 x 1.1 cm and the left lobe measures 4.2 x 0.9 x 1.2 cm in size. There are no suspicious masses or nodules. The color Doppler images demonstrate normal vascularity. There is a heterogeneous nodule which is located posterior to the inferior pole of the right thyroid lobe measuring 1.1 x 0.6 x 0.9 cm, similar to the prior study. IMPRESSION: The nodule appears to represent a parathyroid nodule, likely an adenoma. This is similar to the prior study, in retrospect. This measures 1.1 cm. If indicated, a parathyroid nuclear medicine scan could be helpful for further evaluation. No thyroid nodule. Dictated by Thai Avila MD @ 12/26/2022 10:39:50 AM (Electronically Signed)
== END 2022-12-26 09:29 | disposition home or self-care (01) ==
PROVIDERS: PCP Family Medicine; Visit Provider Family Medicine
DX: Z12.31 Encounter for screening mammogram for malignant neoplasm of breast (principal); N63.20 Unspecified lump in the left breast, unspecified quadrant; E04.1 Nontoxic single thyroid nodule
CPT/HCPCS: 76536; 77067

== ENCOUNTER 2023-01-13 09:19 | Outpatient (CLI) | payer OTHER, SELFPAY ==
--- NOTE | 2023-01-13 09:45 | CRLHL7_ITS ---
For Patients: As a result of the Cures Act, medical imaging exams and procedure reports are released immediately into your electronic medical record. You may view this report before your referring provider. If you have questions, please contact your health care provider. DIGITAL DIAGNOSTIC LEFT MAMMOGRAM USING TOMOSYNTHESIS AND COMPUTER-AIDED DETECTION LEFT BREAST ULTRASOUND CLINICAL HISTORY: LEFT breast mass/asymmetry. COMPARISON: 12/26/22. TECHNIQUE: Digital LEFT mammogram in two projections. Tomosynthesis and CAD utilized. Real-time ultrasound imaging of LEFT breast with imaging documentation. BREAST COMPOSITION: The breast is heterogeneously dense, which may obscure small masses. FINDINGS: 3D spot compression CC/MLO LEFT breast mammogram images submitted. Decreased conspicuity of previously noted asymmetric density. No architectural distortion. Benign calcifications and prior biopsy clip. Targeted LEFT breast ultrasound performed. Normal fibroglandular tissue is present 12-3 o`clock 5 cm from the nipple. Benign fibrocystic change 2 o`clock 5 cm from the nipple measuring 5 x 6 x 6 millimeters. No suspicious findings IMPRESSION: Benign fibrocystic change. No evidence of malignancy. RECOMMENDATIONS: Routine screening mammography. Results and recommendations discussed with the patient. BI-RADS Category 2: Benign A lay language report of this examination will be provided to the patient. Dictated by Thai Avila MD @ 01/13/2023 11:09:20 AM /Dictated by: Thai Avila MD @ 01/13/2023 11:09:00 AM (Electronically Signed)
--- NOTE | 2023-01-13 10:15 | CRLHL7_ITS ---
For Patients: As a result of the Cures Act, medical imaging exams and procedure reports are released immediately into your electronic medical record. You may view this report before your referring provider. If you have questions, please contact your health care provider. PLEASE SEE DIGITAL DIAGNOSTIC LEFT MAMMOGRAM PERFORMED SAME DAY CRL:letty saenz/Dictated by: Thai Avila MD @ 01/13/2023 11:09:00 AM (Electronically Signed)
== END 2023-01-13 09:20 | disposition home or self-care (01) ==
LOC: MAMMO 09:19
PROVIDERS: PCP Family Medicine; Visit Provider Family Medicine
DX: N63.20 Unspecified lump in the left breast, unspecified quadrant (principal); R92.8 Other abnormal and inconclusive findings on diagnostic imaging of breast
CPT/HCPCS: 76642; 77065; G0279

== ENCOUNTER 2023-04-03 08:06 | Outpatient (CLI) | payer OTHER, SELFPAY ==
--- OUTSIDE RECORDS SUMMARY | 2023-04-06 11:01 | XMS_ITS | Clinical Summary ---
Author Name Unknown Organization [facility] Address [place], [place] [address] Care Team Providers Care Hunter Name Role Phone Peter Greco MD Primary Care Provider [phone] Allergies No known active allergies Medications No known medications Active Problems Problem Noted Date Diagnosed Date Previous delivery, antepartum condition or complication 10/23/2009 Encounters Date Type Department Care Team Description 03/25/2023 12:34 AM WAGE AND SALARY ADMINISTRATOR - 03/25/2023 2:01 AM [facility] Emergency [facility] [address] [place] [address] Jerman Gamez MD Acute pain of left shoulder (Primary Dx); Transaminitis Discharge Disposition: Home Self Care 03/25/2023 Travel from Last 3 Months Immunizations Name Administration Dates Next Due Tdap 10/26/2009 Social History Tobacco Use Types Packs/Day Years Used Date Smoking Tobacco: Never Smokeless Tobacco: Never Alcohol Use Standard Drinks/Week Comments Not Currently 0 (1 standard drink = 0.6 oz pur e alcohol) Sex and Gender Information Value Date Recorded Sex Assigned at Not on file Gender Identity Not on file Sexual Orientation Not on file Obstetrics History Para Term AB IAB SAB Ectopic Multiple Livin g Live Births 4 2 2 0 1 0 1 0 0 2 2 Date Outcome GA Total Labor Labor/2nd/3rd Weight Sex Delivery Anes PTL Manjula A1 A5 Name Cl in 12/19 04 SAB Comments:no D&C 06/19 06 Term 41w 0d 4h 00m/ 3.52 kg (7 lb 12 oz) [facility] Delivery Location:[place] Comments:2 day inducti on - CPD & FTP 12/19 07 Term 39w 0d 3.54 kg (7 lb 13 oz) F [facility] Delivery Location:[place] Comments:Repeat c/s Last Filed Vital Signs Vital Sign Reading Time Taken Comments Blood Pressure 145/97 03/25/2023 1:36 AM WAGE AND SALARY ADMINISTRATOR Pulse 83 03/25/2023 1:36 AM WAGE AND SALARY ADMINISTRATOR Temperature 36.7 ??C (98 ??F) 03/25/2023 12:51 AM WAGE AND SALARY ADMINISTRATOR Respiratory Rate 18 03/25/2023 12:51 AM WAGE AND SALARY ADMINISTRATOR Oxygen Saturation 98% 03/25/2023 1:36 AM WAGE AND SALARY ADMINISTRATOR Inhaled Oxygen Concentration - - Weight 60.8 kg (134 lb 1.6 oz) 03/25/2023 12:52 AM WAGE AND SALARY ADMINISTRATOR Height 167.6 cm (5' 6) 03/25/2023 12:52 AM WAGE AND SALARY ADMINISTRATOR Body Mass Index 21.64 03/25/2023 12:52 AM WAGE AND SALARY ADMINISTRATOR Plan of Treatment Health Maintenance Due Date Last Done Comments COVID-19 vaccine series (#1) 01/20/1979 Depression screening for age 12+ 1990 HIV for age 15-65 1993 BMI (ht and wt on same day) for age 18+ 1996 Hepatitis C screening for ag e 18-79 1996 Tetanus booster 10/27/2019 10/26/2009 Influenza for age 9-49 10/31/2022 Pap test for age 21-65 07/04/2024 2, 07/04/2021 Tdap Completed 10/26/2009 Pneumococcal series for age 6-64 Aged Out No longer eligible b ased on patient's age to complete this topic Procedures Procedure Name Priority Date/Time Associated Diagnosis Comments XR CHEST 2 VIEWS PA AND LATERAL STAT 03/25/2023 1:24 AM WAGE AND SALARY ADMINISTRATOR RED CELL MORPHOLOGY STAT 03/25/2023 1 :09 AM WAGE AND SALARY ADMINISTRATOR PLATELET ESTIMATE STAT 03/25/2023 1:0 9 AM WAGE AND SALARY ADMINISTRATOR MANUAL DIFFERENTIAL STAT 03/25/2023 1 :09 AM WAGE AND SALARY ADMINISTRATOR CBC WITH AUTO DIFFERENTIAL STAT 03/25/2023 1:09 AM WAGE AND SALARY ADMINISTRATOR TROPONIN T (HS) ACUTE W/2HR REFLEX STAT 03/25/2023 1:09 AM WAGE AND SALARY ADMINISTRATOR COMP METABOLIC PANEL STAT 03/25/2023 1:09 AM WAGE AND SALARY ADMINISTRATOR CBC WITH AUTO DIFFERENTIAL STAT 03/25/2023 1:09 AM WAGE AND SALARY ADMINISTRATOR EKG 12 LEAD STAT 03/25/2023 12:45 AM WAGE AND SALARY ADMINISTRATOR from Last 3 Months Results * XR CHEST 2 VIEWS PA AND LATERAL (03/25/2023 1:24 AM WAGE AND SALARY ADMINISTRATOR) Anatomical Region Laterality Modality CHEST, THORAX, Lung, HEART Digit al Radiography Jerman Gamez MD GENERAL IMAGING * TROPONIN T (HS) ACUTE W/2HR REFLEX (03/25/2023 1:09 AM WAGE AND SALARY ADMINISTRATOR) TROPONIN T HS <6 6-10 ng/L ng/L 03/25/2023 1:44 AM WAGE AND SALARY ADMINISTRATOR [facility] Blood BLOOD SPECIMEN / Unknown Venipuncture / Unknown 03/25/2023 1:09 AM WAGE AND SALARY ADMINISTRATOR 03/25/2023 1:11 AM WAGE AND SALARY ADMINISTRATOR Narrative [facility] - 03/25/2023 1:44 AM WAGE AND SALARY ADMINISTRATOR hs-cTnT (Elecsys Troponin T Gen 5) concentration (s) above the sex-specific 99th percentile (16 ng/L or greater for males or 11 ng/L or greater for females) are indicative of myocardial injury. If initial hs-cTnT <=100 ng/L at presentation, a 0h/2h ABSOLUTE (ng/L) delta change (rising or falling) of >=10 ng/L suggests a significant change, whereas a 0h/2h delta change <=3 ng/L suggests no significant change. If initial hs-cTnT >100 ng/L at presentation, a 0h/2h/ RELATIVE (percent, %) delta change of 20% is suggested to distinguish patients with acute vs. chronic myocardial injury. There are multiple etiologies that can cause hs-cTnT increases above the 99th percentile (myocardial injury) other than acute myocardial infarction. Clinical context and careful clinical evaluation are critical for diagnosis and risk-stratification. The diagnosis of acute myocardial infarction requires a rising and/or falling pattern in hs-cTnT concentrations with at least one value above the sex-specific 99th percentile PLUS at least one of the following clinical criteria: ischemic symptoms, new or presumed new significant ST-T wave changes or new LBBB, development of pathological Q waves, imaging evidence of new loss of viable myocardium or new regional wall motion abnormality, or identification of intracoronary atherothrombosis or an acute angiographic culprit on coronary angiography. In appropriate low-risk patients with a non-ischemic electrocardiogram without active chest pain with a symptom onset >3-hours without recurrence, a single initial hs-cTnT<6 ng/L identifies patient with a very low risk in emergency department patient population. Jerman Gamez MD CHEMISTRY [facility] [address] [phone] * CBC WITH AUTO DIFFERENTIAL (03/25/2023 1:09 AM [facility]) WHITE BLOOD COUNT 9.7 4.5 - 11.0 thou/cu mm 03/25/2023 1:28 AM [facility] RED BLOOD COUNT 4.13 4.00 - 5.20 mil/cu mm 03/25/2023 1:28 AM [facility] HEMOGLOBIN 12.1 12.0 - 16.0 g/dL 03/25/2023 1:28 AM [facility] HEMATOCRIT 37.3 33.0 - 51.0 % 03/25/2023 1:28 AM [facility] MCV 90 80 - 100 fL 03/25/2023 1:28 AM [facility] MCH 29.3 26.0 - 34.0 pg 03/25/2023 1:28 AM [facility] MCHC 32.4 32.0 - 36.0 g/dL 03/25/2023 1:28 AM [facility] RDW 13.6 11.5 - 15.5 % 03/25/2023 1:28 AM [facility] PLATELET COUNT 400 140 - 440 thou/cu mm 03/25/2023 1:28 AM [facility] MPV 9.3 6.5 - 11.0 fL 03/25/2023 1:28 AM [facility] Blood BLOOD SPECIMEN / Unknown Venipuncture / Unknown 03/25/2023 1:09 AM WAGE AND SALARY ADMINISTRATOR 03/25/2023 1:11 AM WAGE AND SALARY ADMINISTRATOR Jerman Gamez MD HEMATOLOGY Performing Organization Address [facility] de Phone Number [facility] [address] [phone] * RED CELL MORPHOLOGY (03/25/2023 1:09 AM WAGE AND SALARY ADMINISTRATOR) RBC COMMENT RBC morphology appears normal RBC morphology appears normal, RBC morphology within normal limits for newborns. 03/25/2023 1:28 AM [facility] Blood BLOOD SPECIMEN / Unknown Venipuncture / Unknown 03/25/2023 1:09 AM WAGE AND SALARY ADMINISTRATOR 03/25/2023 1:11 AM WAGE AND SALARY ADMINISTRATOR Jerman Gamez MD HEMATOLOGY Performing Organization Address [facility] de Phone Number [facility] [address] [place] [phone] * PLATELET ESTIMATE (03/25/2023 1:09 AM WAGE AND SALARY ADMINISTRATOR) PLATELET ESTIMATE Adequate Adequate, No estimate 03/25/2023 1:28 AM [facility] Blood BLOOD SPECIMEN / Unknown Venipuncture / Unknown 03/25/2023 1:09 AM WAGE AND SALARY ADMINISTRATOR 03/25/2023 1:11 AM WAGE AND SALARY ADMINISTRATOR Jerman Gamez MD HEMATOLOGY Performing Organization Address [facility]/ZIP Co de Phone Number [facility] [address] [phone] * (ABNORMAL) MANUAL DIFFERENTIAL (03/25/2023 1:09 AM [facility]) % NEUTROPHILS 59.0 % 03/25/2023 1:28 AM [facility] % LYMPHOCYTES 27.0 % 03/25/2023 1:28 AM [facility] % MONOCYTES 11.0 % 03/25/2023 1:28 AM [facility] % EOSINOPHILS 2.0 % 03/25/2023 1:28 AM [facility] % BASOPHILS 1.0 % 03/25/2023 1:28 AM [facility] NEUTROPHILS ABSOLUTE 5.7 1.7 - 7.0 thou/cu mm 03/25/2023 1:28 AM [facility] LYMPHOCYTES ABSOLUTE 2.6 0.9 - 2.9 thou/cu mm 03/25/2023 1:28 AM [facility] MONOCYTES ABSOLUTE 1.1(H) <0.9 thou/cu mm 03/25/2023 1:28 AM [facility] EOSINOPHILS ABSOLUTE 0.2 <0.5 thou/cu mm 03/25/2023 1:28 AM [facility] BASOPHILS ABSOLUTE 0.1 <0.3 thou/cu mm 03/25/2023 1:28 AM [facility] Blood BLOOD SPECIMEN / Unknown Venipuncture / Unknown 03/25/2023 1:09 AM WAGE AND SALARY ADMINISTRATOR 03/25/2023 1:11 AM [facility] Jerman Gamez MD HEMATOLOGY [facility] [address] [phone] * (ABNORMAL) COMP METABOLIC PANEL (03/25/2023 1:09 AM [facility]) SODIUM 138 136 - 145 mmol/L 03/25/2023 1:44 AM [facility] POTASSIUM 3.8 3.5 - 5.1 mmol/L 03/25/2023 1:44 AM [facility] CHLORIDE 101 98 - 107 mmol/L 03/25/2023 1:44 AM [facility] CO2,TOTAL 24 22 - 29 mmol/L 03/25/2023 1:44 AM [facility] ANION GAP 13 5 - 18 03/25/2023 1:44 AM [facility] GLUCOSE 112(H) 70 - 99 mg/dL 03/25/2023 1:44 AM [facility] CALCIUM 9.2 8.6 - 10.0 mg/dL 03/25/2023 1:44 AM [facility] BUN 12 6 - 20 mg/dL 03/25/2023 1:44 AM [facility] CREATININE 0.70 0.50 - 0.90 mg/dL 03/25/2023 1:44 AM [facility] BUN/CREAT RATIO 17 10 - 20 1:44 AM [facility] eGFR >90 >90 mL/min/1.7 3m2 03/25/2023 1:44 AM [facility] Comment:As of 2021, eG FR is calculated by the CKD-EPI creatinine equation without race adjustment. ??eGFR can be influenced by muscle mass, exercise, and diet. ??The reported eGFR is an estimation only and is only applicable if the renal function is stable. ALBUMIN 4.1 4.0 - 4.9 g/dL 03/25/2023 1:44 AM [facility] PROTEIN,TOTAL 7.1 6.0 - 8.0 g/dL 03/25/2023 1:44 AM [facility] BILIRUBIN,TOTAL 0.3 0.0 - 1.2 mg/dL 03/25/2023 1:44 AM [facility] ALK PHOSPHATASE 112(H) 35 - 104 IU/L 03/25/2023 1:44 AM [facility] ALT (SGPT) 97(H) 10 - 35 IU/L 03/25/2023 1:44 AM [facility] AST (SGOT) 37(H) 10 - 35 IU/L 03/25/2023 1:44 AM [facility] Blood BLOOD SPECIMEN / Unknown Venipuncture / Unknown 03/25/2023 1:09 AM WAGE AND SALARY ADMINISTRATOR 03/25/2023 1:11 AM WAGE AND SALARY ADMINISTRATOR Jerman Gamez MD CHEMISTRY [facility] [address] [place] [phone] * EKG 12 LEAD (03/25/2023 12:45 AM WAGE AND SALARY ADMINISTRATOR) Interpretation Normal sinus rhythm Cannot rule out Anterior infarct , age undetermined Abnormal ECG No previous ECGs available BEYOND NOW Ventricular Rate 80 BPM BEYOND NOW Atrial Rate 80 BPM BEYOND NOW P-R Interval 152 ms BEYOND NOW QRS Duration 78 ms BEYOND NOW QT 388 ms BEYOND NOW QTc 447 ms BEYOND NOW P [place] 67 degrees BEYOND NOW R [place] 40 degrees BEYOND NOW T [place] 34 degrees BEYOND NOW 03/25/2023 12:4 5 AM WAGE AND SALARY ADMINISTRATOR 03/25/2023 6:33 PM WAGE AND SALARY ADMINISTRATOR Jerman Gamez MD EKG ORD BEYOND NOW [place], [place] from Last 3 Months Advance Directives Latest Code Status on File Code Status Date Activated Date Inactivated Comments Full Code 10/23/2009 1:29 PM 10/26/2009 3:53 PM Code Status History Code Status Date Activated Date Inactivated Comments Full Code 10/23/2009 10:48 AM 10/23/2009 1:29 PM Care Teams Hunter Relationship Specialty Start Date End Date Peter Greco MD [address] [place] [address] [place] [phone] PCP - General Family Practice 03/25/23
== END 2023-04-03 08:07 | disposition home or self-care (01) ==
LOC: NFLDREF 04-06 10:59
PROVIDERS: PCP Family Medicine; Referring Provider Family Medicine; Visit Provider Family Medicine
DX: E78.5 Hyperlipidemia, unspecified (principal); Z13.228 Encounter for screening for other metabolic disorders
CPT/HCPCS: 80053; 80061

== ENCOUNTER 2023-05-14 11:33 | Outpatient (CLI) | payer OTHER, SELFPAY | END 2023-05-14 11:34 | disposition home or self-care (01) | LOC: NFLDREF 11:35 | PROVIDERS: PCP Family Medicine; Visit Provider Family Medicine | DX: R10.12 Left upper quadrant pain (principal) | CPT/HCPCS: 80053; 87086; 87186 ==

== ENCOUNTER 2023-06-11 12:31 | Outpatient (CLI) | payer OTHER, SELFPAY ==
--- OUTSIDE RECORDS SUMMARY | 2023-06-11 12:33 | XMS_ITS | Encounter Summary ---
Author Name Unknown Organization [facility] Address [address] [place] [address] Care Team Providers Care Firing Pin Gauger Name Role Phone Jennifer Parker APRN, C.N.P., D.N.P. Primary C are Provider Encounter Details Date Type Department Care Team (Late st Contact Info) Description 06/02/2023 Orders Only [facility] Jennifer Parker, CARLOS ALBERTO, C.N.P., D.N.P. [address] [place] [address] Screening Mammogram Breast Cancer Social History Tobacco Use Types Packs/Day Years Used Date Smoking Tobacco: Never Smokeless Tobacco: Never Alcohol Use Standard Drinks/Week Comments Yes 0 (1 standard drink = 0.6 oz pur e alcohol) social, 2-3x per month Humiliation, Afraid, Rape, and Kick questionnair e Answer Date Recorded Within the last year, have y ou been afraid of your partner or ex-partner? No 06/26/2020 Within the last year, have y ou been humiliated or emotionally abused in other ways by your partner or ex-partner? No Within the last year, have y ou been kicked, hit, slapped, or otherwise physically hurt by your partner or ex-partner? No 06/26/2020 Within the last year, have y ou been raped or forced to have any kind of sexual activity by your partner or ex-partner? No 06/26/2020 Social Connection and Isolat ion Panel [NHANES] Answer Date Recorded In a typical week, how many times do you talk on the phone with family, friends, or neighbors? More than three times a week 06/26/2020 How often do you get togethe r with friends or relatives? Twice a week 06/26/2020 How often do you attend chur or hinduism services? More than 4 times per year 06/26/2020 Do you belong to any clubs o r organizations such as uatsdin groups, unions, fraternal or athletic groups, or school groups? Yes 06/26/2020 How often do you attend meet ings of the clubs or organizations you belong to? More than 4 times per year 06/26/2020 Are you , , di vorced, , never , or living with a partner? 06/26/2020 AUDIT-C Answer Date Recorded Q1: How often do you have a drink containing alc ohol? Monthly or less 06/26/2020 Q2: How many drinks containi ng alcohol do you have on a typical day when you are drinking? 1 or 2 06/26/2020 Q3: How often do you have si x or more drinks on one occasion? Never 06/26/2020 Overall Financial Resource Strain (CARDIA) Answe r Date Recorded How hard is it for you to pa y for the very basics like food, housing, medical care, and heating? Not very hard 06/26/2020 PHQ-2 Answer Date Recorded PHQ-2 Score 0 06/26/2020 [facility] - Occupational Stress Questionnaire Answer Date Recorded Do you feel stress - tense, restless, nervous, or anxious, or unable to sleep at night because your mind is troubled all the time - these days? Not at all 06/26/2020 Exercise Vital Sign Answer Date Recorde d On average, how many days pe r week do you engage in moderate to strenuous exercise (like a brisk walk)? 0 days 06/26/2020 On average, how many minutes do you engage in exercise at this level? 0 min 06/26/2020 Hunger Vital Sign Answer Date Recorded Within the past 12 months, y ou worried that your food would run out before you got the money to buy more. Never true 06/27/19 21 Within the past 12 months, t he food you bought just didn't last and you didn't have money to get more. Never true 06/26/2020 PRAPARE - Transportation Answer Date Re corded In the past 12 months, has l ack of transportation kept you from medical appointments or from getting medications? No 06/01 In the past 12 months, has l ack of transportation kept you from meetings, work, or from getting things needed for daily living? No 06/26/2020 Housing Stability Vital Sign Answer Tyson e Recorded In the last 12 months, was t here a time when you were not able to pay the mortgage or rent on time? No 06/26/2020 In the last 12 months, how many places have you lived? 1 06/26/2020 In the last 12 months, was t here a time when you did not have a steady place to sleep or slept in a mcc (including now)? No 06/26/2020 Nutrition Answer Date Recorded Nutrition: EVOO Fat Source Yes 06/26 On average, how many serving s of fruits and vegetables do you eat per day (serving size is equal to 1 cup or approximately the size of a tennis ball)? 2-3 06/26/2020 Dental Answer Date Recorded Dental: Regular Dentist Yes 03/04/19 Employment Answer Date Recorded Employment status Employed and actively working without restrictions 06/26/2020 Education Answer Date Recorded What is the highest level of school you have completed or the highest degree you have received? Bachelor's degree (e.g., BA, AB, BS) 04/28/2019 Sex and Gender Information Value Date Recorded Sex Assigned at Not on file Gender Identity Not on file Sexual Orientation Not on file documented as of this encounter Plan of Treatment Not on file documented as of this encounter Visit Diagnoses Diagnosis Screening Mammogram Breast Cancer documented in this encounter Care Teams Firing Pin Gauger Relationship Specialty Start Date End Date Jennifer Parker APRN, C.N.P., D.N.P. [address] [place] [address] PCP - General 09/20/20 documented as of this encounter
--- OUTSIDE RECORDS SUMMARY | 2023-06-11 12:33 | XMS_ITS | Encounter Summary ---
Author Name Unknown Organization [facility] Address [address] [place] [address] Care Team Providers Care Diesel Tractor Engine Mechanic Name Role Phone Jennifer Parker APRN, C.N.P., D.N.P. Primary C are Provider Reason for Visit * Reason Onset Date Comments Results 06/08/2023 Encounter Details Date Type Department Care Team (Late st Contact Info) Description 06/08/2023 Clinical Communication Department of Family Medicine, [facility], in [place], [place] [address] [place] [phone] Jennifer Parker APRN, C.N.P., D.N.P. [address] [place] [phone] Results Social History Tobacco Use Types Packs/Day Years [...] How often do you attend chur or orthodox services? More than 4 times per year 06/26/2020 Do you belong to any clubs o r organizations such as episcopal groups, unions, fraternal or athletic groups, or [...] Answer Date Recorded PHQ-2 Score 0 06/26/2020 [facility] Occupat ional Health - Occupational Stress [...] place to sleep or slept in a intermediate (including now)? No 06/26/2020 Nutrition Answer Date [...] on file documented as of this encounter Miscellaneous Notes * Telephone Encounter - Iqra Garcia LNorbertoP.N. - 06/08/2023 4:49 PM CDT Left message letting patient know recommendations an that an antibiotic has been send in for her tostart documented in this encounter Plan of Treatment Not on file documented as of this encounter Visit Diagnoses Diagnosis Bacteroides Fragilis As The Cause Of Diseases Classified Elsewhere- Primary documented in this encounter Care Teams Diesel Tractor Engine Mechanic Relationship Specialty Start Date End Date Jennifer Parker APRN, C.N.P., D.N.P. [address], [place] [phone] PCP - General 09/20/20 documented as of this encounter
--- OUTSIDE RECORDS SUMMARY | 2023-06-11 12:33 | XMS_ITS | Encounter Summary ---
Author Name Unknown Organization [facility] Address [address] [place] [address] Care Team Providers Care In Flight Refueling System Repairer Name Role Phone Jennifer Parker APRN, C.N.P., D.N.P. Primary C are Provider Reason for Visit * Reason Comments Vomiting Encounter Details Date Type Department Care Team (Late st Contact Info) Description 05/31/2023 7:07 PM CDT - 05/31/2023 11:59 PM CDT Emergency [facility] [address] [place] [address] Pyelonephritis (Primary Dx) Discharge Disposition: Admitted as an Inpatient Social History Tobacco Use Types Packs/Day Years [...] 06/26/2020 How often do you attend chur ch or mandaeism services? More than 4 times per year 06/26/2020 Do you belong to any clubs o r organizations such as gnosticist groups, unions, fraternal or athletic groups, or [...] Answer Date Recorded PHQ-2 Score 0 06/26/2020 [facility] Occupat ional Health - Occupational Stress [...] place to sleep or slept in a penitentiary (including now)? No 06/26/2020 Nutrition Answer Date [...] on file documented as of this encounter Procedures Procedure Name Priority Date/Time Associated Diagnosis Comments CT ABDOMEN PELVIS WITH IV CONTRAST RAD - Semiurgent (Fast; most ED patients; some inpatients) 05/31/2023 8:22 PM CDT documented in this encounter Results * CT Abdomen Pelvis with IV Contrast (05/31/2023 8:22 PM CDT) Anatomical Region Laterality Modality Abdomen, Pelvis, Abdominal R ST LOS, Abdominal ARZ LOS, Abdominal FLA LOS N/A Computed Tomography 05/31/2023 8:16 PM CDT Impressions 05/31/2023 8:43 PM CDT Diffuse inflammatory stranding adjacent to the left kidney with patchy areas of hypoenhancement. Mild urothelial thickening throughout the left ureter. Findings are concerning for ascending urinary tract infection and acute left pyelonephritis. This has progressed since 04/20/2023. Narrative 05/31/2023 8:43 PM CDT EXAM: CT ABDOMEN PELVIS WITH IV CONTRAST COMPARISON: CT of the abdomen and pelvis with IV contrast from 04/20/2023. FINDINGS: Diffuse inflammatory stranding adjacent to the left kidney with multiple patchy areas of hypoenhancement. Mildly thickened, hyperenhancing urothelium of the left ureter with mild hydronephrosis. No obstructing nephroureterolithiasis. Findings have progressed since CT from 04/30/2023. Innumerable nonobstructing calyceal tip stones in both kidneys. Multiple simple right renal cyst. Small hepatic cysts or hemangiomas. The liver, spleen, pancreas, adrenal glands and right kidney are otherwise normal. Normal caliber large and small bowel. No drainable fluid collections. No abdominal or pelvic adenopathy. Dependent atelectasis in both lung bases. Procedure Note Aris Briceño M.D. - 05/31/2023 EXAM: CT ABDOMEN PELVIS WITH IV CONTRAST COMPARISON: CT of the abdomen and pelvis with IV contrast from04/20/2023. FINDINGS: Diffuse inflammatory stranding adjacent to the left kidney withmultiple patchy areas of hypoenhancement. Mildly thickened, hyperenhancingurothelium of the left ureter with mild hydronephrosis. No obstructingnephroureterolithiasis. Findings have progressed since CT from 04/30/2023. Innumerable nonobstructingcalyceal tip stones in both kidneys. Multiple simple right renal cyst. Small hepatic cysts or hemangiomas. The liver, spleen, pancreas, adrenalglands and right kidney are otherwise normal. Normal caliber large andsmall bowel. No drainable fluid collections. No abdominal or pelvicadenopathy. Dependent atelectasis in both lung bases. IMPRESSION: Diffuse inflammatory stranding adjacent to the left kidney with patchyareas of hypoenhancement. Mild urothelial thickening throughout the leftureter. Findings are concerning for ascending urinary tract infection andacute left pyelonephritis. This has progressed since 04/20/2023. Segundo Robbins M.D. IMAshley CT PROCEDURES documented in this encounter Visit Diagnoses Diagnosis Pyelonephritis- Primary documented in this encounter Administered Medications Inactive Administered Medications - up to 3 most recent administrations Medication Order MAR Action Action Date Dose Rate Site iohexoL 300 mg iodine/mL solution 1-200 mL (OMNIPAQUE) 1-200 mL, intravenous, Once in imaging, contrast, Starting on 05/31/23 at 2017, For 1 dose, If administered oral then dilute in 900 mL water Given 05/31/2023 8:13 PM CDT 100 mL sodium chloride 0.9 % flush 100 mL 100 mL, intravenous, Once in imaging, line care, Starting on 05/31/23 at 2017, For 1 dose Given 05/31/2023 8:13 PM CDT 75 mL sodium chloride 0.9 % injection 10 mL 10 mL, intravenous, Once in imaging, line care, Starting on 05/31/23 at 2017, For 1 dose Given 05/31/2023 8:13 PM CDT 10 mL documented in this encounter Active and Recently Administered Medications Times are shown in CDT. PRN Medication Order 05/29/2023 05/30/2023 05/31/2023 iohexoL 300 mg iodine/mL solution 1-200 mL (OMNIPAQUE) (COMPLETED) 1-200 mL, intravenous, Once in imaging, contrast, Starting on 05/31/23 at 2017, For 1 dose, If administered oral then dilute in 900 mL water 2012 (Given - Provid er: Mago George(R)(CT), R.T.(R)) sodium chloride 0.9 % flush 100 mL (COMPLETED) 100 mL, intravenous, Once in imaging, line care, Starting on 05/31/23 at 2017, For 1 dose 2012 (Given - Provid er: Flip George.(R)(CT), R.T.(R)) sodium chloride 0.9 % injection 10 mL (COMPLETED) 10 mL, intravenous, Once in imaging, line care, Starting on 05/31/23 at 2018, For 1 dose 2012 (Given - Provid er: Mgao George(R)(CT), Mago(R)) documented in this encounter Care Teams In Flight Refueling System Repairer Relationship Specialty Start Date End Date Jennifer Parker APRN, C.N.P., D.N.P. [address] [phone] PCP - General 09/20/20 documented as of this encounter
--- OUTSIDE RECORDS SUMMARY | 2023-06-11 12:33 | XMS_ITS | Referral Summary ---
Author Name Unknown Organization [facility] Address [address] [place] [address] Care Team Providers Care Superintendent Marine [employer] Name Role Phone Jennifer Parker APRN, C.N.P., D.N.P. Primary C are Provider Source Comments Patient records contain information from all sites at [facility]. For routine questions regarding patient records, call [phone] during business hours, M-F 8:00 AM - 5:00 PM Central Time. Record requests for emergency care only can be directed to [phone] at any time.[facility] Encounters Date Type Department Care Team Description 06/08/2023 Clinical Communication Department of Family Medicine, [facility], in [place], [place] [address] [place] [phone] Jennifer Parker APRN, C.N.P., D.N.P. Results 06/04/2023 Clinical Communication Department of Family Medicine, [facility], in [place], [place] [address] [place] [phone] Karlene Calderón R.N. Post Hospital Follow-up (TCM- 2 calls attempted- left msgs) 06/03/2023 Clinical Communication Department of Family [facility], [facility] [place], [place] [address] [place] [address] Peter Greco M.D. OSM - Outside Materials ([facility] - ED: Dr. Morales[facility]) 06/02/2023 Orders Only [facility] PCP [facility] MNT Jennifer Parker APRN, C.N.P., D.N.P. Screening Mammogram Breast Cancer 05/31/2023 7:07 PM CDT - 05/31/2023 11:59 PM CDT Emergency [facility] [address] [place] [address] Pyelonephritis (Primary Dx) Discharge Disposition: Admitted as an Inpatient 04/20/2023 6:44 PM TRACTOR OPERATOR LASER LEVELING - 04/20/2023 10:32 PM TRACTOR OPERATOR LASER LEVELING Emergency [facility] [address] [address] Pyelonephritis (Primary Dx) Discharge Disposition: Home or Self Care 03/25/2023 12:31 AM TRACTOR OPERATOR LASER LEVELING - 03/25/2023 2:01 AM [facility] Emergency [facility] [address], [place] [address] Pain Shoulder Left (Primary Dx) Discharge Disposition: Home or Self Care from Last 3 Months Allergies No known active allergies Medications Medication Sig Dispensed Refills Start Date End Date Status metroNIDAZOLE (FLAGYL) 500 mg tabletIndications: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 21 tablet 0 06/08/2023 06/15/2023 Active Active Problems Problem Noted Date Diagnosed Date Hyperlipidemia 02/12/2017 Atypical Squamous Cell Uncer tain Significance Personal History 02/12/2017 Family History Coronary Artery Disease 7 Immunizations Name Administration Dates Next Due DTaP (Infanrix, Tripedia) 10/26/2009 Influenza (IM) Preservative Free 11/24/2008,12/02,12/29/2006 Influenza Split 01/21/2006,01/03/2005,12/08/2003 Influenza, Seasonal, Injectable 03/17/2012 Influenza, Unspecified 01/03/2011,12/04/2009 Td Preservative Free (TENIVAC, DECAVAC) 10/08/19 03 Tdap 09/21/2016 Social History Tobacco Use Types Packs/Day Years Used Date Smoking Tobacco: Never Smokeless Tobacco: Never Tobacco Cessation:Counseling Given: No Alcohol Use Standard Drinks/Week Comments Yes 0 [...] How often do you attend chur or sabianism services? More than 4 times per year 06/26/2020 Do you belong to any clubs o r organizations such as orthodox groups, unions, fraternal or athletic groups, or [...] Answer Date Recorded PHQ-2 Score 0 06/26/2020 [facility] [place] [facility] Occupat ional Health - Occupational Stress [...] place to sleep or slept in a detention (including now)? No 06/26/2020 Nutrition Answer Date [...] on file Sexual Orientation Not on file Last Filed Vital Signs Vital Sign Reading Time Taken Comments Blood Pressure 130/86 06/26/2020 9:14 AM CDT man ual Pulse 66 08/10/2020 1:16 PM CDT Temperature 36.5 ??C (97.7 ??F) 08/10/2020 1:16 PM CD T Respiratory Rate 16 06/26/2020 9:14 AM CDT Oxygen Saturation 97% 08/10/2020 1:16 PM CDT Inhaled Oxygen Concentration - - Weight 60.1 kg (132 lb 7.9 oz) 06/26/2020 9:14 A M CDT Height 165.8 cm (5' 5.28) 06/26/2020 9:14 AM CD T Body Mass Index 21.86 06/26/2020 9:14 AM CDT Plan of Treatment Not on file Medical Devices Implanted Type Area Labeling Associate Device Identifier Shelf Expiration Date Model / Serial / Lot Securemark Biopsy Clip - [id number] Implanted:Qty: 1 on 06/22/2019 at [facility] Marker Left: Breast [employer] [id number] 12/01/[address] [id number] Procedures Procedure Name Priority Date/Time Associated Diagnosis Comments CT ABDOMEN PELVIS WITH IV CONTRAST RAD - Semiurgent (Fast; most ED patients; some inpatients) 05/31/2023 8:[address] ABDOMEN PELVIS WITH IV CONTRAST RAD - Semiurgent (Fast; most ED patients; some inpatients) 04/20/2023 8:50 PM TRACTOR OPERATOR LASER LEVELING DX CHEST AP OR PA AND LATERAL 2 VIEWS RAD - Semiurgent (Fast; most ED patients; some inpatients) 03/25/2023 1:25 AM TRACTOR OPERATOR LASER LEVELING from Last 3 Months Results * CT Abdomen Pelvis with IV Contrast (05/31/2023 8:22 PM CDT) Only the most recent of2 resultswithin the time period is included. Anatomical Region Laterality Modality Abdomen, Pelvis, Abdominal [...] has progressed since 04/20/2023. Segundo Robbins M.D. IMG CT PROCEDURES * DX Chest AP or PA and Lateral 2 Views (03/25/2023 1:25 AM TRACTOR OPERATOR LASER LEVELING) Anatomical Region Laterality Modality Chest, Thoracic RST LOS, Tho racic ARZ LOS, Thoracic FLA LOS N/A Digital Radiography Impressions 03/25/2023 1:27 AM TRACTOR OPERATOR LASER LEVELING No acute findings. Clear chest. Narrative 03/25/2023 1:27 AM TRACTOR OPERATOR LASER LEVELING EXAM: DX CHEST AP OR PA AND LATERAL 2 VIEWS COMPARISON: Chest radiographs 10/07/2016 FINDINGS: Lungs, Pleura and Airways: Clear lungs. No pneumothorax, pleural effusion or focal airspace disease. Normal pulmonary vascular markings. Heart and Mediastinum: Normal heart size and mediastinal contours. Other: Normal bones. Procedure Note Mukul Montano M.D. - 03/25/2023 EXAM: DX CHEST AP OR PA AND LATERAL 2 VIEWS COMPARISON: Chest radiographs 10/07/2016 FINDINGS: Lungs, Pleura and Airways: Clear lungs. No pneumothorax, pleural effusionor focal airspace disease. Normal pulmonary vascular markings. Heart and Mediastinum: Normal heart size and mediastinal contours. Other: Normal bones. IMPRESSION: No acute findings. Clear chest. Jerman Gamez M.D. IMG DIAGNOSTIC IMAGI NG PROCEDURES from Last 3 Months Care Teams Superintendent [employer] Relationship Specialty Start Date End Date Jennifer Parker APRN, C.N.P., D.N.P. [address] [facility] [place] [place] [phone] PCP - General 09/20/20
--- OUTSIDE RECORDS SUMMARY | 2023-06-11 12:33 | XMS_ITS | Encounter Summary ---
Author Name Unknown Organization [facility] Address [address] [place] [address] Care Team Providers Care Registered Radiologic Technologist Name Role Phone Jennifer Parker APRN, C.N.P., D.N.P. Primary C are Provider Reason for Visit * Reason Onset Date Comments Post Hospital Follow-up 06/04/2023 TCM- 2 c alls attempted- left msgs Encounter Details Date Type Department Care Team (Latest Contact Info) Description 06/04/2023 Clinical Communication Department of Family Medicine, [facility], in [place], [place] [address] [phone] Karlene Calderón R.N. [address] [place] [phone] Post Hospital Follow-up (TCM- 2 calls attempted- left msgs) Social History Tobacco Use Types Packs/Day Years [...] How often do you attend chur or yazidism services? More than 4 times per year 06/26/2020 Do you belong to any clubs o r organizations such as anglican groups, unions, fraternal or athletic groups, or [...] Answer Date Recorded PHQ-2 Score 0 06/26/2020 [facility] of Occupat ional Health - Occupational [...] place to sleep or slept in a snf (including now)? No 06/26/2020 Nutrition Answer Date [...] encounter Miscellaneous Notes * Telephone Encounter - Karlene Calderón R.N. - 06/04/2023 12:44 PM CDT REASON FOR CALL Post-Hospital follow-up Call attempt #2 Admission Date: 05/31/23 Discharge Date: 06/03/23, Racheal Aldana Discharge Diagnosis: Pyelonephritis PCP Follow-up appointment scheduled: Dr Jacob at [facility] 06/08/23 at 1:45 pm. Message left to clarify with patient who is PCP, Primary Clinic and who patient plan to follow up with for PHFU visit. Patient was called and was not available, was able to leave a message. When call is returned please send me a message via teams and if I am not available, send an In Basket to [facility] NURSE * Telephone Encounter - Karlene Calderón R.N. - 06/04/2023 9:47 AM CDT REASON FOR CALL Post-Hospital follow-up Call attempt #1 Admission Date: 05/31/23 Discharge Date: 06/03/23, Racheal Hernandeznna Discharge Diagnosis: Pyelonephritis PCP Follow-up appointment scheduled: Dr Jacob at [facility] 06/08/23 at 1:45 pm. Message left to clarify with patient who is PCP, Primary Clinic and who patient plan to follow up with for PHFU visit. Patient was called and was not available, was able to leave a message. When call is returned please send me a message via teams and if I am not available, send an In Basket to [facility] NURSE documented in this encounter Plan of Treatment Not on file documented as of this encounter Visit Diagnoses Not on filedocumented in this encounter Care Teams Registered Radiologic Technologist Relationship Specialty Start Date End Date Jennifer Parker APRN, C.N.P., D.N.P. [address] [place] [address] PCP - General 09/20/20 documented as of this encounter
--- OUTSIDE RECORDS SUMMARY | 2023-06-11 12:33 | XMS_ITS | Clinical Summary ---
Author Name Unknown Organization [facility] Address [address] [place] [address] Care Team Providers Care Pro Shop Attendant Name Role Phone Jennifer Parker APRN, C.N.P., D.N.P. Primary C are Provider Source Comments Patient records contain information from all sites at [facility]. For routine questions regarding patient records, call [phone] during business hours, M-F 8:00 AM - 5:00 PM Central Time. Record requests for emergency care only can be directed to [phone] at any time.[facility] Allergies No known active allergies Medications Medication [...] 02/12/2017 Family History Coronary Artery Disease 7 Encounters Date Type Department Care Team Description 06/08/2023 Clinical Communication Department of Family Medicine, [facility], in [place], [place] [address] [place] [phone] Jennifer Parker APRN, C.N.P., D.N.P. Results 06/04/2023 Clinical Communication Department of Family Medicine, [facility], in [place], [place] [address] [place] [address] Karlene Calderón R.N. Post Hospital Follow-up (TCM- 2 calls attempted- left msgs) 06/03/2023 Clinical Communication Department of [facility], [facility], in [place], [place] [address] [place] [address] Peter Greco M.D. OSM - Outside Materials [facility] 06/02/2023 Orders Only [facility] P[facility]NT Parker, Jennifer Inman APRN, C.N.P., D.N.P. Screening Mammogram Breast Cancer 05/31/2023 7:07 PM CDT - 05/31/2023 11:59 PM CDT Emergency [facility] [address] [place] [phone] Pyelonephritis (Primary Dx) Discharge Disposition: Admitted as an Inpatient 04/20/2023 6:44 PM SELF PROPELLED HOT MIX ROLLER OPERATOR - 04/20/2023 10:32 PM SELF PROPELLED HOT MIX ROLLER OPERATOR [facility] [address] [place] [phone] Pyelonephritis (Primary Dx) Discharge Disposition: Home or Self Care 03/25/2023 12:31 AM SELF PROPELLED HOT MIX ROLLER OPERATOR - 03/25/2023 2:01 AM SELF PROPELLED HOT MIX ROLLER OPERATOR [facility] [address] [place] [phone] Pain Shoulder Left (Primary Dx) Discharge Disposition: Home or Self Care from Last 3 Months Immunizations Name Administration Dates Next Due DTaP (Infanrix, Tripedia) 10/26/2009 Influenza (IM) Preservative Free 11/24/2008,12/02,12/29/2006 Influenza Split 01/21/2006,01/03/2005,12/08/2003 Influenza, Seasonal, Injectable 03/17/2012 Influenza, Unspecified 01/03/2011,12/04/2009 Td Preservative Free (TENIVAC, DECAVAC) 10/08/19 03 Tdap 09/21/2016 Family History Medical History Relation Name Comments No Known Problems Brother 1 No Known Problems Brother 2 No Known Problems Brother 3 Diabetes Father Heart attack Father Coronary artery disease Maternal Grandfather Pneumonia Maternal Grandfather Stroke Maternal Grandmother CABG - Coronary artery bypass graft Mother Hyperlipidemia Mother Hypothyroid Mother Colon cancer Paternal Grandfather Coronary artery bypass graft Paternal Grandmother Hypothyroid Sister Relation Name Status Comments Brother 1 Alive Brother 2 Alive Brother 3 Alive Father Alive Maternal Grandfather (Age 86) Maternal Grandmother (Age 70) Mother Alive Paternal Grandfather (Age 56) Paternal Grandmother (Age 75) Sister Alive Social History Tobacco Use Types Packs/Day Years [...] often do you attend chur ch or jewish services? More than 4 times per year 06/26/2020 Do you belong to any clubs o r organizations such as hoahaoism groups, unions, fraternal or athletic groups, or [...] Answer Date Recorded PHQ-2 Score 0 06/26/2020 [facility] of Occupat ional Health - Occupational Stress [...] place to sleep or slept in a jail (including now)? No 06/26/2020 Nutrition Answer Date [...] 06/26/2020 9:14 AM CDT Plan of Treatment Health Maintenance Due Date Last Done Comments HIV Screening 1978 Hepatitis C Screening 1978 Hepatitis B Vaccines (1 of 3 - 19+ 3-dose series) 1997 Mammogram 06/12/2021 06/12/2020, 05/31, 04/28/2019 Lipid (Cholesterol) Screening 06/26/2021 06/26/2020, 04/28/2019, 02/12/2017, Additional history exists COVID-19 Vaccine (2022-24 season) 2022 Influenza Vaccine (#1) 2022 3, 01/03/2011, 12/04/2009, Additional history exists Depression Screening (Annual PHQ-2) 03/02/2023 Cervical Cancer Screening 04/28/20242019, 04/28/2019, 02/12/2017, Additional history exists DTaP,Tdap,and Td Vaccines (3 - Td or Tdap) 09/21/2026 09/21/2016, 10/26/2009, 10/07/2002 HPV Vaccines Aged Out No longer eligi ble based on patient's age to complete this topic Pneumococcal vaccine (0-64 years) Aged Out No longer eligible based on patient's age to complete this topic Medical Devices Implanted Type Area Adjunct Mathematics Instructor Device Identifier Shelf Expiration Date Model / Serial / Lot Securemark Biopsy Clip - [id number] Implanted:Qty: 1 on 06/22/2019 at [facility] Imaging Marker Left: Breast [employer] [id number] 12/01/2019 [employer] [id number] Procedures Procedure Name Priority Date/Time Associated Diagnosis Comments CT ABDOMEN PELVIS WITH IV CONTRAST RAD - Semiurgent (Fast; most ED patients; some inpatients) 05/31/2023 8:[address] ABDOMEN PELVIS WITH IV CONTRAST RAD - Semiurgent (Fast; most ED patients; some inpatients) 04/20/2023 8:50 PM SELF PROPELLED HOT MIX ROLLER OPERATOR DX CHEST AP OR PA AND LATERAL 2 VIEWS RAD - Semiurgent (Fast; most ED patients; some inpatients) 03/25/2023 1:25 AM SELF PROPELLED HOT MIX ROLLER OPERATOR from Last 3 Months Results * CT [...] left pyelonephritis. This has progressed since 04/20/2023. Segnudo Robbins M.D. IMG CT PROCEDURES * DX Chest AP or PA and Lateral 2 Views (03/25/2023 1:25 AM SELF PROPELLED HOT MIX ROLLER OPERATOR) Anatomical Region Laterality Modality Chest, Thoracic RST LOS, Tho racic ARZ LOS, Thoracic FLA LOS N/A Digital Radiography Impressions 03/25/2023 1:27 AM SELF PROPELLED HOT MIX ROLLER OPERATOR No acute findings. Clear chest. Narrative 03/25/2023 1:27 AM SELF PROPELLED HOT MIX ROLLER OPERATOR EXAM: DX CHEST AP OR PA AND [...] PROCEDURES from Last 3 Months Care Teams Pro Shop Attendant Relationship Specialty Start Date End Date Jennifer Parker APRN, C.N.P., D.N.P. [address] [place] [phone] [facility] - General 09/20/20
--- OUTSIDE RECORDS SUMMARY | 2023-06-11 12:33 | XMS_ITS ---
Author Name Unknown Organization [facility] Address [address] [place] [address] Care Team Providers Care Rn Internship Name Role Phone Unavailable Unavailable Unavailable Surgery Details Not on file Complications Check Surgery Details section. Procedure Estimated Blood Loss Check Surgery Details section. Procedure Findings Check Surgery Details section. Procedure Specimens Taken Check Surgery Details section.
--- OUTSIDE RECORDS SUMMARY | 2023-06-11 12:33 | XMS_ITS | Encounter Summary ---
Author Name Unknown Organization [facility] Address [address] [place] [address] Care Team Providers Care Transmission Superintendent Name Role Phone Jennifer Parker APRN, C.N.P., D.N.P. Primary C are Provider Reason for Visit * Reason Onset Date Comments [facility] - Outside Materials 06/03/2023 [facility] - ED: Kaylynn Dodd Encounter Details Date Type Department Care Team (Latest Contact Info) Description 06/03/2023 Clinical Communication Department of Family Medicine, [facility], in [place], [place] [address] [place] [phone] Peter Greco M.D. [address] [place] [phone] [facility] - Outside Materials ([facility] - ED: Kaylynn Dodd) Social History Tobacco Use Types Packs/Day Years [...] How often do you attend chur or islam services? More than 4 times per year 06/26/2020 Do you belong to any clubs o r organizations such as latter day groups, unions, fraternal or athletic groups, or [...] Answer Date Recorded PHQ-2 Score 0 06/26/2020 [facility] [place] [facility] - Occupational Stress [...] place to sleep or slept in a custodial (including now)? No 06/26/2020 Nutrition Answer Date [...] on filedocumented in this encounter Care Teams Transmission Superintendent Relationship Specialty Start Date End Date Jennifer Parker APRN, C.N.P., D.N.P. [address] [place] [phone] PCP - General 09/20/20 documented as of this encounter
--- OUTSIDE RECORDS SUMMARY | 2023-06-11 12:34 | XMS_ITS | Encounter Summary ---
Author Name Unknown Organization [facility] Address [address] [place] [address] Care Team Providers Care Pediatric Physical Therapist Name Role Phone Jennifer Parker APRN, C.N.P., D.N.P. Primary C are Provider Reason for Visit * Reason Comments Blood in Urine Abdominal Pain Encounter Details Date Type Department Care Team (Late st Contact Info) Description 04/20/2023 6:44 PM MANAGER UNDERWRITING - 04/20/2023 10:32 PM MANAGER UNDERWRITING Emergency [facility] [address] [place] [phone] Pyelonephritis (Primary Dx) Discharge Disposition: Home or Self Care Social History Tobacco Use Types Packs/Day Years [...] How often do you attend chur or zoroastrianism services? More than 4 times per year 06/26/2020 Do you belong to any clubs o r organizations such as quaker groups, unions, fraternal or athletic groups, or [...] Answer Date Recorded PHQ-2 Score 0 06/26/2020 [facility] - Occupational [...] place to sleep or slept in a skilled nursing (including now)? No 06/26/2020 Nutrition Answer Date [...] ED patients; some inpatients) 04/20/2023 8:50 PM MANAGER UNDERWRITING documented in this encounter Results * CT Abdomen Pelvis with IV Contrast (04/20/2023 8:50 PM MANAGER UNDERWRITING) Anatomical Region Laterality Modality Abdomen, Pelvis, Abdominal R ST LOS, Abdominal ARZ LOS, Abdominal FLA LOS N/A Computed Tomography 04/20/2023 8:46 PM MANAGER UNDERWRITING Impressions 04/20/2023 9:07 PM MANAGER UNDERWRITING 1. Diffusely dilated left nephrogram with mild left hydronephrosis. No evidence of distal obstructing ureteral stone. 2. Mild urothelial thickening and enhancement of the left renal pelvis. Findings could be seen with acute pyelonephritis. Clinical correlation recommended. 3. Otherwise no acute findings in the pelvis. Narrative 04/20/2023 9:07 PM MANAGER UNDERWRITING EXAM: CT ABDOMEN PELVIS WITH IV CONTRAST COMPARISON: None FINDINGS: Mildly dilated left nephrogram. Mild left hydronephrosis with urothelial enhancement of the left renal pelvis. No evidence of distal obstructing renal stone. Multiple nonobstructing calyceal tip stones in both kidneys. Bilateral simple renal cysts. Small hepatic cyst or hemangioma. The liver, spleen, pancreas and adrenal glands are otherwise normal. Normal caliber large and small bowel. No drainable fluid collections. Scattered calcified atherosclerotic disease. Dependent atelectasis in both lung bases. Procedure Note Aris Briceño M.D. - 04/20/2023 EXAM: CT ABDOMEN PELVIS WITH IV CONTRAST COMPARISON: None FINDINGS: Mildly dilated left nephrogram. Mild left hydronephrosis withurothelial enhancement of the left renal pelvis. No evidence of distalobstructing renal stone. Multiple nonobstructing calyceal tip stones inboth kidneys. Bilateral simple renal cysts. Small hepatic cyst or hemangioma. The liver, spleen, pancreas and adrenalglands are otherwise normal. Normal caliber large and small bowel. No drainable fluid collections.Scattered calcified atherosclerotic disease. Dependent atelectasis in bothlung bases. IMPRESSION: 1. Diffusely dilated left nephrogram with mild left hydronephrosis. Noevidence of distal obstructing ureteral stone. 2. Mild urothelial thickening and enhancement of the left renal pelvis.Findings could be seen with acute pyelonephritis. Clinical correlationrecommended. 3. Otherwise no acute findings in the pelvis. Toni BRIGGS CT PROCEDURE S documented in this encounter Visit Diagnoses Diagnosis Pyelonephritis- Primary documented in this encounter Administered Medications Inactive Administered Medications - up to 3 most recent administrations Medication Order MAR Action Action Date Dose Rate Site iohexoL 300 mg iodine/mL solution 100 mL (OMNIPAQUE) 100 mL, intravenous, Once in imaging, contrast, Starting on Thu04/20/23 at 7, For 1 dose Given 04/20/2023 8:45 PM MANAGER UNDERWRITING 100 mL Right Antecubital sodium chloride 0.9 % flush 80 mL 80 mL, intravenous, Once, On Thu04/20/23 at 2100, For 1 dose Given 04/20/2023 8:45 PM MANAGER UNDERWRITING 80 mL Right Antecubital sodium chloride 0.9 % injection 10 mL 10 mL, intravenous, Once, On Thu04/20/23 at 2100, For 1 dose Given 04/20/2023 8:45 PM MANAGER UNDERWRITING 10 mL Right Antecubital documented in this encounter Active and Recently Administered Medications Times are shown in MANAGER UNDERWRITING. Scheduled Medication Order 04/18/2023 04/19/2023 04/20/2023 sodium chloride 0.9 % flush 80 mL (COMPLETED) 80 mL, intravenous, Once, On Thu04/20/23 at 2100, For 1 dose 2044 (Given - Provid er: Amandeep Limon - Comment: ED IV) sodium chloride 0.9 % injection 10 mL (COMPLETED) 10 mL, intravenous, Once, On Thu04/20/23 at 2100, For 1 dose 2044 (Given - Provid er: Amandeep Limon - Comment: ED IV) PRN Medication Order 04/18/2023 04/19/2023 04/20/2023 iohexoL 300 mg iodine/mL solution 100 mL (OMNIPAQUE) (COMPLETED) 100 mL, intravenous, Once in imaging, contrast, Starting on Thu04/20/23 at 7, For 1 dose 2044 (Given - Provid er: Amandeep Limon - Comment: ED IV) documented in this encounter Care Teams Pediatric Physical Therapist Relationship Specialty Start Date End Date Jennifer Parker APRN, C.N.P., D.N.P. [address] [place] [phone] PCP - General 09/20/20 documented as of this encounter
--- OUTSIDE RECORDS SUMMARY | 2023-06-11 12:34 | XMS_ITS | Clinical Summary ---
Author Name Unknown Organization [facility] Address [place], [place] [address] Care Team Providers Care Sonographer Name Role Phone Peter Greco MD Primary Care Provider [phone] Allergies No known active allergies Medications No known medications Active Problems Problem Noted Date Diagnosed Date Pyelonephritis 05/31/2023 Hyperlipidemia 02/12/2017 Family history of coronary artery disease 2016 Previous delivery, antepartum condition or complication 10/23/2009 Encounters Date Type Department Care Team Description 06/06/2023 Telephone [facility] [address] [place] [id number] Kaylynn Morales MD Lab 05/31/2023 7:08 PM CDT - 06/03/2023 11:45 AM CDT Hospital Encounter [facility] [place] [address] Segundo Robbins MD Gross, Brady Michael, PA Sekhon, Ajay Singh, MBBS Thompson, Kaneisha Monique, MD Pyelonephritis (Primary Dx) Discharge Disposition: Home Self Care 05/31/2023 Travel 04/20/2023 6:56 PM TREATER HELPER - 04/20/2023 10:32 PM TREATER HELPER Emergency [address] [address] Sic[employer]ano bhakta DO Knutson, Benjamin Douglas, MD Acute pyelonephritis (Primary Dx) Discharge Disposition: Home Self Care 04/20/2023 Travel 03/25/2023 12:34 AM TREATER HELPER - 03/25/2023 2:01 AM [facility] Emergency [facility] [address] [place] [address] Jerman Gamez MD Acute pain of left shoulder (Primary Dx); Transaminitis Discharge Disposition: Home Self Care 03/25/2023 Travel from Last 3 Months Immunizations Name Administration Dates Next Due Tdap 10/26/2009 Social History Tobacco Use Types Packs/Day Years Used Date Smoking Tobacco: Never Smokeless Tobacco: Never Alcohol Use Standard Drinks/Week Comments Not Currently 0 (1 standard drink = 0.6 oz pur e alcohol) Social Connections Answer Date Recorded Frequency of Communication with Friends and Fami ly 0 06/01/2023 Financial Resource Strain Answer Date R ecorded Difficulty of Paying Living Expenses 3 06/01/2023 Difficulty of Paying Living Expenses Not on file 06/01/2023 Food Insecurity Answer Date Recorded Worried About Running Out of Food in the Last Ye ar 1 06/01/2023 Transportation Needs Answer Date Record ed Lack of Transportation (Medical) 1 06/01/2023 Housing Stability Answer Date Recorded Unable to Pay for Housing in the Last Year 1 06/01/2023 Sex and Gender Information Value Date Recorded [...] [facility] Delivery Location:[place] Comments:2 day inducti on - CPD & FTP 12/19 07 Term 39w 0d 3.54 kg (7 lb 13 oz) F [facility] Delivery Location:[place] Comments:Repeat c/s Last Filed Vital Signs Vital Sign Reading Time Taken Comments Blood Pressure 136/92 06/03/2023 10:17 AM CDT Pulse 68 06/03/2023 10:17 AM CDT Temperature 36.7 ??C (98.1 ??F) 06/03/2023 1 0:17 AM CDT Respiratory Rate 16 06/03/2023 10:1 7 AM CDT Oxygen Saturation 98% 06/03/2023 10: 17 AM CDT Inhaled Oxygen Concentration - - Weight 58.4 kg (128 lb 12.8 oz) 024 11:24 PM CDT Height 162.6 cm (5' 4) 05/31/2023 7:08 PM CDT Body Mass Index 22.11 05/31/2023 7:08 PM CDT Plan of Treatment Health Maintenance Due Date Last Done Comments Depression screening for age 12+ 1990 HIV for age 15-65 1993 BMI (ht and wt on same day) for age 18+ 1996 Hepatitis C screening for ag e 18-79 1996 Tetanus booster 10/27/2019 10/26/2009 COVID-19 vaccine series (2022- season) 2022 Influenza for age 9-49 11/01/2023 Pap test for age 21-65 07/04/2024 2, 07/04/2021 Tdap Completed 10/26/2009 Pneumococcal series for age 6-64 Aged Out No longer eligible b ased on patient's age to complete this topic Procedures Procedure Name Priority Date/Time Associated Diagnosis Comments BASIC METABOLIC PANEL Early AM 06/03/2023 5:44 AM CDT CBC WITH AUTO DIFFERENTIAL Early AM 06/02/2023 5:42 AM CDT PROCALCITONIN Early AM 06/02/2023 5:42 AM CDT MAGNESIUM Early AM 06/02/2023 5:42 AM CDT RENAL FUNCTION PANEL Early AM 06/02/2023 5:42 AM CDT CBC WITH AUTO DIFFERENTIAL Early AM 06/02/2023 5:42 AM CDT CBC WITH AUTO DIFFERENTIAL Early AM 06/01/2023 6:06 AM CDT BASIC METABOLIC PANEL Early AM 06/01/2023 6:06 AM CDT CBC WITH AUTO DIFFERENTIAL Early AM 06/01/2023 6:06 AM CDT BLOOD CULTURE STAT 05/31/2023 9:08 PM CDT BLOOD CULTURE MULTIPLEX PCR STAT 05/31/2023 9:01 PM CDT BLOOD CULTURE STAT 05/31/2023 9:[address] ABDOMEN PELVIS W STAT 05/31/2023 8 :22 PM CDT URINE STAT 05/31/2023 7:33 PM CDT URINE CULTURE STAT 05/31/2023 7:33 PM CDT UA W/ SEDIMENT EXAM REFLEXED PER CRITERIA STAT 05/31/2023 7:33 PM CDT CBC WITH AUTO DIFFERENTIAL STAT 05/31/2023 7:30 PM CDT LIPASE STAT 05/31/2023 7:30 PM CDT BASIC METABOLIC PANEL STAT 05/31/2023 7:30 PM CDT CBC WITH AUTO DIFFERENTIAL STAT 05/31/2023 7:[address] ABDOMEN PELVIS W STAT 04/20/2023 8 :51 PM TREATER HELPER RED CELL MORPHOLOGY STAT 04/20/2023 7 :33 PM TREATER HELPER PLATELET ESTIMATE STAT 04/20/2023 7:3 3 PM TREATER HELPER MANUAL DIFFERENTIAL STAT 04/20/2023 7 :33 PM TREATER HELPER CBC WITH AUTO DIFFERENTIAL STAT 04/20/2023 7:33 PM TREATER HELPER LIPASE STAT 04/20/2023 7:33 PM TREATER HELPER COMP METABOLIC PANEL STAT 04/20/2023 7:33 PM TREATER HELPER CBC WITH AUTO DIFFERENTIAL STAT 04/20/2023 7:33 PM TREATER HELPER URINE JAZMÍN 04/20/2023 6:53 PM TREATER HELPER URINALYSIS MICROSCOPIC STAT 6:53 PM TREATER HELPER UA W/ SEDIMENT EXAM REFLEXED PER CRITERIA STAT 04/20/2023 6:53 PM TREATER HELPER XR CHEST 2 VIEWS PA AND LATERAL STAT 03/25/2023 1:24 AM TREATER HELPER RED CELL MORPHOLOGY STAT 03/25/2023 1 :09 AM TREATER HELPER PLATELET ESTIMATE STAT 03/25/2023 1:0 9 AM TREATER HELPER MANUAL DIFFERENTIAL STAT 03/25/2023 1 :09 AM TREATER HELPER CBC WITH AUTO DIFFERENTIAL STAT 03/25/2023 1:09 AM TREATER HELPER TROPONIN T (HS) ACUTE W/2HR REFLEX STAT 03/25/2023 1:09 AM TREATER HELPER COMP METABOLIC PANEL STAT 03/25/2023 1:09 AM TREATER HELPER CBC WITH AUTO DIFFERENTIAL STAT 03/25/2023 1:09 AM TREATER HELPER EKG 12 LEAD STAT 03/25/2023 12:45 AM TREATER HELPER HPV THIN PREP Routine 07/04/2021 10:30 AM CDT from Last 3 Months or Most Recently Relevant to Health Maintenance Results * BASIC METABOLIC PANEL (06/03/2023 5:44 AM CDT) Only the most recent of3 resultswithin the time period is included. SODIUM 138 136 - 145 mmol/L 06/03/2023 6:31 AM [facility] POTASSIUM 3.9 3.5 - 5.1 mmol/L 06/03/2023 6:31 AM [facility] CHLORIDE 104 98 - 107 mmol/L 06/03/2023 6:31 AM [facility] CO2,TOTAL 24 22 - 29 mmol/L 06/03/2023 6:31 AM [facility] ANION GAP 10 5 - 18 06/03/2023 6:31 AM [facility] GLUCOSE 91 70 - 99 mg/dL 06/03/2023 6:31 AM [facility] CALCIUM 8.8 8.6 - 10.0 mg/dL 06/03/2023 6:31 AM [facility] BUN 12 6 - 20 mg/dL 06/03/2023 6:31 AM [facility] CREATININE 0.77 0.50 - 0.90 mg/dL 06/03/2023 6:31 AM [facility] BUN/CREAT RATIO 16 10 - 20 6:31 AM [facility] eGFR >90 >90 mL/min/1.7 3m2 06/03/2023 6:31 AM [facility] Comment:As of 2021, eG FR is calculated by the CKD-EPI creatinine equation without race adjustment. ??eGFR can be influenced by muscle mass, exercise, and diet. ??The reported eGFR is an estimation only and is only applicable if the renal function is stable. Blood BLOOD SPECIMEN / Unknown Venipuncture / Unknown 06/03/2023 5:44 AM CDT 06/03/2023 6:00 AM CDT Nicolas PARISI CHEMISTRY [facility] [address] [place] [address] * (ABNORMAL) CBC WITH AUTO DIFFERENTIAL (06/02/2023 5:42 AM [facility]) Only the most recent of5 resultswithin the time period is included. WHITE BLOOD COUNT 7.3 4.5 - 11.0 thou/cu mm 06/02/2023 6:06 AM [facility] RED BLOOD COUNT 3.99(L) 4.00 - 5.20 mil/cu mm 06/02/2023 6:06 AM [facility] HEMOGLOBIN 11.1(L) 12.0 - 16.0 g/dL 06/02/2023 6:06 AM [facility] HEMATOCRIT 35.0 33.0 - 51.0 % 06/02/2023 6:06 AM [facility] MCV 88 80 - 100 fL 06/02/2023 6:06 AM [facility] MCH 27.8 26.0 - 34.0 pg 06/02/2023 6:06 AM [facility] MCHC 31.7(L) 32.0 - 36.0 g/dL 06/02/2023 6:06 AM [facility] RDW 15.2 11.5 - 15.5 % 06/02/2023 6:06 AM [facility] PLATELET COUNT 348 140 - 440 thou/cu mm 06/02/2023 6:06 AM [facility] MPV 9.5 6.5 - 11.0 fL 06/02/2023 6:06 AM [facility] % NEUT 56.6 % 06/02/2023 6:06 AM [facility] % LYMPH 32.6 % 06/02/2023 6:06 AM [facility] % MONO 7.6 % 06/02/2023 6:06 AM [facility] % EOS 2.9 % 06/02/2023 6:06 AM [facility] % BASO 0.3 % 06/02/2023 6:06 AM [facility] ABSOLUTE NEUTROPHILS 4.1 1.7 - 7.0 thou/cu mm 06/02/2023 6:06 AM CDT [facility] ABSOLUTE LYMPHOCYTES 2.4 0.9 - 2.9 thou/cu mm 06/02/2023 6:06 AM T [facility] ABSOLUTE MONOCYTES 0.6 <0.9 thou/cu mm 06/02/2023 6:06 AM T [facility] ABSOLUTE EOSINOPHILS 0.2 <0.5 thou/cu mm 06/02/2023 6:06 AM T [facility] ABSOLUTE BASOPHILS 0.0 <0.3 thou/cu mm 06/02/2023 6:06 AM CDT [facility] Blood BLOOD SPECIMEN / Unknown Butterfly / Unknown 06/02/2023 5:42 AM CDT 06/02/2023 5:57 AM CDT Nicolas PARISI HEMATOLOGY Performing Organization Address City/State/[facility] Co de Phone Number [facility] [address] [address] * PROCALCITONIN (06/02/2023 5:42 AM CDT) PROCALCITONIN 0.16 ng/ml 06/02/2023 6:34 AM CDT [facility] Blood BLOOD SPECIMEN / Unknown Butterfly / Unknown 06/02/2023 5:42 AM CDT 06/02/2023 5:57 AM CDT Narrative [facility] - 06/02/2023 6:34 AM CDT Procalcitonin for initial assessment of Lower Respiratory Tract Infection: Results Interpretation <0.10 ng/mL Antibiotic therapy strongly discoraged. ??Indicates absent of bacterial infection. * 0.10 - 0.25 ng/mL Antibiotic therapy discouraged. ??Bacterial infection unlikely. * 0.26 - 0.50 ng/mL Antibiotic therapy encouraged. ??Bacterial infection possible. >0.50 ng/mL Antibiotic therapy strongly encouraged. ??Suggestive of presence of bacterial infection. *Antibiotic therapy should be considered regardless of PCT result if the patient is clinically unstable, is at high risk for adverse outcome, has strong evidence of bacterial pathogen, or the clinical context indicates antibiotic therapy is warranted. ??If antibiotics are withheld, reassess if symptoms persist/worsen and/or repeat PCT measurement within 6-24 hours. ? In order to assess treatment success and to support a decision to discontinue antibiotic therapy, follow up samples should be tested once every 1-2 days, based upon physician discretion taking into account patient's evolution and progress. Procalcitonin for initial assessment of severe sepsis risk: Results Interpretation <0.5 ng/ml A PCT level below 0.5 ng/ml on the first day of ICU admission is associated with a low risk for progression to severe sepsis and/or septic shock. > 2.0 ng/mL A PCT level above 2.0 ng/mL on the first day of ICU admission is associated with a high risk for progression to severe sepsis and/or septic shock. Note: Concentrations < 0.5 ng/mL do not exclude an infection, on account of localized infections (without systemic signs) which can be associated with such low concentrations, or a systemic infection in its initial stages(< 6 hours). Furthermore, increased procalcitonin can occur without infection. PCT concentrations between 0.5 and 2.0 ng/mL should be interpreted taking into account the patient's history. It is recommended to retest PCT within 6-24 hours if any concentrations < 2 ng/mL are obtained. Nicolas PARISI SEND OUTS [facility] [address] [address] * MAGNESIUM (06/02/2023 5:42 AM CDT) [facility] Signature MAGNESIUM 2.0 1.6 - 2.6 mg/dL 06/02/2023 6:41 AM CDT [facility] Blood BLOOD SPECIMEN / Unknown Butterfly / Unknown 06/02/2023 5:42 AM CDT 06/02/2023 5:57 AM CDT Nicolas PARISI CHEMISTRY [facility] [address] [address] * (ABNORMAL) RENAL FUNCTION PANEL (06/02/2023 5:42 AM CDT) SODIUM 138 136 - 145 mmol/L 06/02/2023 6:18 AM [facility] POTASSIUM 3.9 3.5 - 5.1 mmol/L 06/02/2023 6:18 AM [facility] CHLORIDE 107 98 - 107 mmol/L 06/02/2023 6:18 AM [facility] CO2,TOTAL 22 22 - 29 mmol/L 06/02/2023 6:18 AM [facility] ANION GAP 9 5 - 18 06/02/2023 6:18 AM [facility] GLUCOSE 91 70 - 99 mg/dL 06/02/2023 6:18 AM [facility] CALCIUM 8.1(L) 8.6 - 10.0 mg/dL 06/02/2023 6:18 AM [facility] BUN 10 6 - 20 mg/dL 06/02/2023 6:18 AM [facility] CREATININE 0.72 0.50 - 0.90 mg/dL 06/02/2023 6:18 AM [facility] BUN/CREAT RATIO 14 10 - 20 6:18 AM [facility] eGFR >90 >90 mL/min/1.7 3m2 06/02/2023 6:18 AM [facility] Comment:As of 2021, eG FR is calculated by the CKD-EPI creatinine equation without race adjustment. ??eGFR can be influenced by muscle mass, exercise, and diet. ??The reported eGFR is an estimation only and is only applicable if the renal function is stable. PHOSPHORUS 2.9 2.5 - 4.5 mg/dL 06/02/2023 6:18 AM [facility] ALBUMIN 3.8(L) 4.0 - 4.9 g/dL 06/02/2023 6:18 AM [facility] Blood BLOOD SPECIMEN / Unknown Butterfly / Unknown 06/02/2023 5:42 AM CDT 06/02/2023 5:57 AM CDT Nicolas PARISI CHEMISTRY Performing Organization Address [facility] Co de Phone Number [address] [address] * BLOOD CULTURE (05/31/2023 9:08 PM CDT) Only the most recent of2 resultswithin the time period is included. CULTURE No Growth. 06/06/2023 4:23 AM CDT [facility] Blood BLOOD SPECIMEN / Unknown Butterfly / Unknown 05/31/2023 9:08 PM CDT 05/31/2023 9:11 PM CDT Segundo Robbins MD MICROBIOLOGY Performing Organization Address [facility] Co de Phone Number [address] [address] * BLOOD CULTURE MULTIPLEX PCR (05/31/2023 9:01 PM CDT) Organism(s) Detected No organism targets detected. No organism targets detected., Invalid 06/05/2023 7:24 AM CDT [facility] Resistance Gene(s) None detected None detected 06/05/2023 7:24 AM CDT [facility] CTX-M (ESBL-resistance gene) N/A 06/05/2023 7:24 AM CDT [facility] IMP (carbapenem-resistanc e gene) N/A NOT Detected, N/A 06/05/2023 7:24 AM CDT [facility] KPC (carbapenem-resistanc e gene) N/A NOT Detected, N/A 06/05/2023 7:24 AM CDT [facility] mcr-1 (colistin-resistance gene) N/A 06/05/2023 7:[address] [facility] mecA/C (methicillin-resistan ce gene) N/A 06/05/2023 7:24 AM [facility]T [facility] mecA/C and MREJ (methicillin-resistan ce gene) N/A 06/05/2023 7:24 AM CDT [facility] NDM (carbapenem-resistanc e gene) N/A NOT Detected, N/A 06/05/2023 7:24 AM CDT [facility] OXA-48 like (carbapenem-resistanc e gene) N/A NOT Detected, N/A 06/05/2023 7:24 AM CDT [facility] van A/B (vancomycin-resistanc e genes) N/A 06/05/2023 7:24 AM CDT [facility] VIM (carbapenem-resistanc e gene) N/A NOT Detected, N/A 06/05/2023 7:24 AM CDT [facility] Enterococcus faecalis NOT Detected 06/05/2023 7:24 AM CDT [facility] Enterococcus faecium NOT Detected 06/05/2023 7:24 AM CDT [facility] Listeria monocytogenes NOT Detected 06/05/2023 7:24 AM CDT [facility] Staphylococcus NOT Detected 06/05/2023 7:24 AM CDT [facility] Staphlococcus aureus NOT Detected 06/05/2023 7:24 AM CDT [facility] Staphylococcus epidermidis NOT Detected 06/05/2023 7:24 AM CDT [facility] Staphylococcus lugdunensis NOT Detected 06/05/2023 7:24 AM CDT [facility] Streptococcus NOT Detected 06/05/2023 7:24 AM CDT [facility] Streptococcus agalactiae (Group B) NOT Detected 06/05/2023 7:24 AM CDT [facility] Streptococcus pneumoniae NOT Detected 06/05/2023 7:24 AM CDT [facility] Streptococcus pyogenes (Group A) NOT Detected 06/05/2023 7:24 AM CDT [facility] Acinetobacter calcoaceticus-rosalio ii complex NOT Detected 06/05/2023 7:24 AM CDT [facility] Enterobacteriaceae NOT Detected 06/05/2023 7:24 AM CDT [facility] Enterobacter cloacae complex NOT Detected 06/05/2023 7:24 AM CDT [facility] Escherichia coli NOT Detected 06/05/2023 7:24 AM CDT [facility] Klebsiella oxytoca NOT Detected 06/05/2023 7:24 AM CDT [facility] Klebsiella pneumoniae group NOT Detected 06/05/2023 7:24 AM CDT [facility] Proteus NOT Detected 06/05/2023 7:24 AM CDT [facility] Serratia marcescens NOT Detected 06/05/2023 7:24 AM CDT [facility] Haemophilus influenzae NOT Detected 06/05/2023 7:24 AM CDT [facility] Neisseria meningitidis NOT Detected 06/05/2023 7:24 AM CDT [facility] Pseudomonas aeruginosa NOT Detected 06/05/2023 7:24 AM CDT [facility] Cheryle albicans NOT Detected 06/05/2023 7:24 AM CDT [facility] Cheryle glabrata NOT Detected 06/05/2023 7:24 AM CDT [facility] Cheryle krusei NOT Detected 06/05/2023 7:24 AM CDT [facility] Cheryle parapsilosis NOT Detected 06/05/2023 7:24 AM CDT [facility] Cheryle tropicalis NOT Detected 06/05/2023 7:24 AM CDT [facility] Bacteroides fragilis group NOT Detected 06/05/2023 7:24 AM CDT [facility] Klebsiella aerogenes NOT Detected 06/05/2023 7:24 AM CDT [facility] Salmonella NOT Detected 06/05/2023 7:24 AM CDT [facility] Stenotrophomonas maltophilia NOT Detected 06/05/2023 7:24 AM CDT [facility] Cheryle auris NOT Detected 06/05/2023 7:24 AM CDT [facility] Cryptococcus neoformans/gattii NOT Detected 06/05/2023 7:24 AM CDT [facility] Blood BLOOD SPECIMEN / Unknown Butterfly / Unknown 05/31/2023 9:01 PM CDT 05/31/2023 9:11 PM CDT Segundo Robbins MD MICROBIOLOGY Performing Organization Address [facility] Co de Phone Number [facility] [address] [place] [address], [place] * CT ABD/PELVIS W IV CONTRAST (05/31/2023 8:22 PM CDT) Only the most recent of2 resultswithin the time period is included. Anatomical Region Laterality Modality Abdomen, Pelvis, AORTA, LIVER, SPLEEN Computed Tomography Segundo Robbins MD CT * URINE CULTURE (05/31/2023 7:33 PM CDT) CULTURE No growth (<1,000 CFU/mL) 06/01/2023 3:28 PM CDT [facility] Urine URINE SPECIMEN / Unknown Non-Blood / Unknown 05/31/2023 7:33 PM CDT 05/31/2023 7:40 PM CDT Segundo Robbins MD MICROBIOLOGY Performing Organization Address [facility] Co de Phone Number [facility] [address] [place] [address], [place] * (ABNORMAL) URINALYSIS W REFLEX MICROSCOPIC IF POSITIVE (05/31/2023 7:33 PM CDT) Only the most recent of2 resultswithin the time period is included. COLOR Yellow Yellow Color 05/31/2023 7:43 PM T [facility] CLARITY Clear Clear Clarity 05/31/2023 7:43 PM T [facility] SPECIFIC GRAVITY,URINE 1.015 1.010, 1.015, 1.020, 1.025 05/31/2023 7:43 PM T [facility] PH,URINE 8.0 6.0, 7.0, 8.0, 5.5, 6.5, 7.5, 8.5 05/31/2023 7:43 PM T [facility] UROBILINOGEN,Q UALITATIVE Normal Normal EU/dl 05/31/2023 7:43 PM [facility] PROTEIN, URINE Negative Negative mg/dL 05/31/2023 7:43 PM [facility] GLUCOSE, URINE Negative Negative mg/dL 05/31/2023 7:43 PM T [facility] KETONES,URINE Trace(A) Negative mg/dL 05/31/2023 7:43 PM T [facility] BILIRUBIN,URIN E Negative Negative 05/31/2023 7:43 PM [facility] OCCULT BLOOD,URINE Negative Negative 05/31/2023 7:43 PM [facility] NITRITE Negative Negative 05/31/2023 7:43 PM [facility] LEUKOCYTE ESTERASE Negative Negative 05/31/2023 7:43 PM [facility] Urine URINE SPECIMEN / Unknown Non-Blood / Unknown 05/31/2023 7:33 PM CDT 05/31/2023 7:40 PM CDT Segundo Robbins MD URINE [facility] [address] [address] * URINE (05/31/2023 7:33 PM CDT) Only the most recent of2 resultswithin the time period is included. ,URIN E Negative Negative 05/31/2023 7:45 PM T [facility] Urine URINE SPECIMEN / Unknown Non-Blood / Unknown 05/31/2023 7:33 PM CDT 05/31/2023 7:40 PM CDT Segundo Robbins MD URINE Performing Organization Address [facility] Phone Number [address] [address] * (ABNORMAL) LIPASE (05/31/2023 7:30 PM CDT) Only the most recent of2 resultswithin the time period is included. LIPASE 63.3(H) 13.0 - 60.0 IU/L 05/31/2023 7:52 PM CDT [facility] Blood BLOOD SPECIMEN / Unknown IV Start / Unknown 05/31/2023 7:30 PM CDT 05/31/2023 7:32 PM CDT Segundo Robbins MD CHEMISTRY Performing Organization Address [address] [address] * RED CELL MORPHOLOGY (04/20/2023 7:33 PM TREATER HELPER) Only the most recent of2 resultswithin the time period is included. Pathologist [facility] RBC COMMENT RBC morphology appears normal RBC morphology appears normal, RBC morphology within normal limits for newborns. 04/20/2023 8:02 PM TREATER HELPER [facility] Blood BLOOD SPECIMEN / Unknown Venipuncture / Unknown 04/20/2023 7:33 PM TREATER HELPER 04/20/2023 7:34 PM TREATER HELPER Toni Walker MD HEMATOLOGY Performing Organization Address [facility] Phone [address] [address] * PLATELET ESTIMATE (04/20/2023 7:33 PM TREATER HELPER) Only the most recent of2 resultswithin the time period is included. PLATELET ESTIMATE Adequate Adequate, No estimate 04/20/2023 8:02 PM [facility] Blood BLOOD SPECIMEN / Unknown Venipuncture / Unknown 04/20/2023 7:33 PM TREATER HELPER 04/20/2023 7:34 PM TREATER HELPER Toni Walker MD HEMATOLOGY [facility] [address] [address] * (ABNORMAL) MANUAL DIFFERENTIAL (04/20/2023 7:33 PM TREATER HELPER) Only the most recent of2 resultswithin the time period is included. % NEUTROPHILS 88.0 % 04/20/2023 8:02 PM [facility] % LYMPHOCYTES 6.0 % 04/20/2023 8:02 PM [facility] % MONOCYTES 6.0 % 04/20/2023 8:02 PM [facility] % EOSINOPHILS 0.0 % 04/20/2023 8:02 PM [facility] % BASOPHILS 0.0 % 04/20/2023 8:02 PM [facility] NEUTROPHILS ABSOLUTE 26.0(H) 1.7 - 7.0 thou/cu mm 04/20/2023 8:02 PM [facility] LYMPHOCYTES ABSOLUTE 1.8 0.9 - 2.9 thou/cu mm 04/20/2023 8:02 PM [facility] MONOCYTES ABSOLUTE 1.8(H) <0.9 thou/cu mm 04/20/2023 8:02 PM [facility] EOSINOPHILS ABSOLUTE 0.0 <0.5 thou/cu mm 04/20/2023 8:02 PM [facility] BASOPHILS ABSOLUTE 0.0 <0.3 thou/cu mm 04/20/2023 8:02 PM [facility] Blood BLOOD SPECIMEN / Unknown Venipuncture / Unknown 04/20/2023 7:33 PM [facility] 04/20/2023 7:34 PM [facility] Toni Wlaker MD HEMATOLOGY [facility] [address] [place] [address] * (ABNORMAL) Comp Metabolic Panel (04/20/2023 7:33 PM [facility]) Only the most recent of2 resultswithin the time period is included. SODIUM 132(L) 136 - 145 mmol/L 04/20/2023 9:01 PM [facility] POTASSIUM 3.5 3.5 - 5.1 mmol/L 04/20/2023 9:01 PM [facility] CHLORIDE 95(L) 98 - 107 mmol/L 04/20/2023 9:01 PM [facility] CO2,TOTAL 20(L) 22 - 29 mmol/L 04/20/2023 9:01 PM [facility] ANION GAP 17 5 - 18 04/20/2023 9:01 PM [facility] GLUCOSE 128(H) 70 - 99 mg/dL 04/20/2023 9:01 PM [facility] CALCIUM 8.9 8.6 - 10.0 mg/dL 04/20/2023 9:01 PM [facility] BUN 11 6 - 20 mg/dL 04/20/2023 9:01 PM [facility] CREATININE 1.03(H) 0.50 - 0.90 mg/dL 04/20/2023 9:01 PM [facility] BUN/CREAT RATIO 11 10 - 20 4 9:01 PM [facility] eGFR 69(L) >90 mL/min/1.7 3m2 04/20/2023 9:01 PM [facility] Comment:As of 2021, eG FR is calculated by the CKD-EPI creatinine equation without race adjustment. ??eGFR can be influenced by muscle mass, exercise, and diet. ??The reported eGFR is an estimation only and is only applicable if the renal function is stable. ALBUMIN 3.9(L) 4.0 - 4.9 g/dL 04/20/2023 9:01 PM [facility] PROTEIN,TOTAL 7.1 6.0 - 8.0 g/dL 04/20/2023 9:01 PM [facility] BILIRUBIN,TOTAL 1.1 0.0 - 1.2 mg/dL 04/20/2023 9:01 PM [facility] ALK PHOSPHATASE 102 35 - 104 IU/L 04/20/2023 9:01 PM [facility] ALT (SGPT) 17 10 - 35 IU/L 04/20/2023 9:01 PM [facility] AST (SGOT) 16 10 - 35 IU/L 04/20/2023 9:01 PM [facility] Blood BLOOD SPECIMEN / Unknown Venipuncture / Unknown 04/20/2023 7:33 PM TREATER HELPER 04/20/2023 7:34 PM [facility]RE[facility] HELPER Toni Walker MD CHEMISTRY Performing Organization Address City/[facility]/ZIP Co de Phone Number [address] [phone] * (ABNORMAL) URINALYSIS MICROSCOPIC (04/20/2023 6:53 PM TRE[facility] HELPER) RBC 3-5(A) 0-2, None Seen /HPF 04/20/2023 7:44 PM [facility] WBC 26-50(A) 0-2, 3-5, None Seen /HPF 04/20/2023 7:44 PM [facility] BACTERIA Many(A) None Seen, Rare, Few Bacteria/H PF 04/20/2023 7:44 PM [facility] EPITHELIAL CELLS Few None Seen, Few Epi/HPF 04/20/2023 7:44 PM [facility] Urine URINE SPECIMEN / Unknown Non-Blood / Unknown 04/20/2023 6:53 PM TRE[facility] HELPER 04/20/2023 7:01 PM TREATER HELPER Dano Laguerre DO URINE Performing Organization Address [facility]/ZIP Co de Phone Number [address] [phone] * XR CHEST 2 VIEWS PA AND LATERAL (03/25/2023 1:24 AM TREATER HELPER) Anatomical Region Laterality Modality CHEST, THORAX, Lung, HEART Digit al Radiography Jerman Gamez MD GENERAL IMAGING * TROPONIN T (HS) ACUTE W/2HR REFLEX (03/25/2023 1:09 AM TREATER HELPER) TROPONIN T HS <6 6-10 ng/L ng/L 03/25/2023 1:44 AM [facility] Blood BLOOD SPECIMEN / Unknown Venipuncture / Unknown 03/25/2023 1:09 AM TREATER HELPER 03/25/2023 1:11 AM TREATER HELPER [facility] - 03/25/2023 1:44 AM [facility] hs-cTnT (Elecsys Troponin T Gen 5) concentration [...] department patient population. Jerman Gamez MD CHEMISTRY Performing Organization Address [facility] de Phone Number [facility] [address] [phone] * EKG 12 LEAD (03/25/2023 12:45 AM TREATER HELPER) Interpretation Normal sinus rhythm Cannot rule out Anterior infarct , age undetermined Abnormal ECG No previous ECGs available [facility] Ventricular Rate 80 BPM [facility] Atrial Rate 80 BPM [facility] P-R Interval 152 ms [facility] QRS Duration 78 ms [facility] QT 388 ms [facility] QTc 447 ms [facility] NOW P Curtis 67 degrees [facility] NOW R Curtis 40 degrees [facility] NOW T Curtis 34 degrees [facility] NOW 03/25/2023 12:4 5 AM TREATER HELPER 03/25/2023 6:33 PM TREATER HELPER Jerman Gamez MD EKG ORD Performing Organization Address [facility] de Phone Number [facility] [place], [place] * HPV HIGH RISK (07/04/2021 10:30 AM CDT) TYPE 16 Negative Negative 07/09/2021 5:02 AM CDT [facility] TYPE 18 Negative Negative 07/09/2021 5:02 AM CDT [facility] OTHER HIGH RISK TYPES Negative Negative 07/09/2021 5:02 AM CDT [facility] Other (Cervical/Vagina l) 07/04/2021 10:30 AM CDT 07/05/2021 7:54 AM CDT Narrative [facility] - 07/09/2021 5:02 AM CDT HPV types 16, 18, 31, 33, 35, 39, 45, 51, 52, 56, 58, 59, 66 and 68 DNA were undetectable or below the pre-set threshold. Methodology: [employer]00 HPV Test Alpa Kapadia PA-C MICROBIOLOGY Performing Organization Address [facility] Co de Phone Number [facility] [address] [place] [address], from Last 3 Months or Most Recently Relevant to Health Maintenance Advance Directives * Full Code (Latest Code Status on File) Date Activated Date Inactivated Comments 05/31/2023 11:54 PM 06/03/2023 1:55 PM Question Answer Comments Code Status Discussion: Reviewed Preferences * Full Code Date Activated Date Inactivated Comments 10/23/2009 1:29 PM 10/26/2009 3:53 PM * Full Code Date Activated Date Inactivated Comments 10/23/2009 10:48 AM 10/23/2009 1:29 PM Care Teams Sonographer Relationship Specialty Start Date End Date Peter Greco MD [address] [place] [address] Efreme ANGY Castellano [phone] PCP - General Family Practice 03/25/23
--- OUTSIDE RECORDS SUMMARY | 2023-06-11 12:34 | XMS_ITS | Encounter Summary ---
Author Name Unknown Organization [facility] Address [address] [place] [address] Care Team Providers Care Software Applications Engineer Name Role Phone Jennifer Parker APRN, C.N.P., D.N.P. Primary C are Provider Reason for Visit * Reason Comments Chest Pain Encounter Details Date Type Department Care Team (Late st Contact Info) Description 03/25/2023 12:31 AM [facility] - 03/25/2023 2:01 AM [facility] Emergency [facility] [address] [place] [phone] Pain Shoulder Left (Primary Dx) Discharge Disposition: [...] often do you attend chur ch or restorationist services? More than 4 times per year 06/26/2020 Do you belong to any clubs o r organizations such as anabaptist groups, unions, fraternal or athletic groups, or [...] Answer Date Recorded PHQ-2 Score 0 06/26/2020 [facility] - Occupational [...] Procedure Name Priority Date/Time Associated Diagnosis Comments DX CHEST AP OR PA AND LATERAL 2 VIEWS RAD - Semiurgent (Fast; most ED patients; some inpatients) 03/25/2023 1:25 AM [facility] documented in this encounter Results * DX Chest AP or PA and Lateral 2 Views (03/25/2023 1:25 AM [facility]) Anatomical Region Laterality Modality Chest, Thoracic RST LOS, Tho racic ARZ LOS, Thoracic FLA LOS N/A Digital Radiography Impressions 03/25/2023 1:27 AM [facility] No acute findings. Clear chest. Narrative 03/25/2023 1:27 AM [facility] EXAM: DX CHEST AP OR PA AND [...] IMPRESSION: No acute findings. Clear chest. Jerman BRIGGS DIAGNOSTIC IMAGI NG PROCEDURES documented in this encounter Visit Diagnoses Diagnosis Pain Shoulder Left- Primary documented in this encounter Care Teams Software Applications Engineer Relationship Specialty Start Date End Date Jennifer Parker APRN, C.N.P., D.N.P. [address] [place] [phone] PCP - General 09/20/20 documented as of this encounter
[2023-06-11 14:01] LABS: Clue Cells No Clue Cells Seen (None Seen); Trichomonas No Trichomonas Seen (None Seen); Yeast Yeast Seen (None Seen)
== END 2023-06-11 12:32 | disposition home or self-care (01) ==
LOC: FBOREF 12:31
PROVIDERS: PCP Family Medicine; Visit Provider Family Medicine
DX: N89.8 Other specified noninflammatory disorders of vagina (principal)
CPT/HCPCS: 81001; 87086; 87210

== ENCOUNTER 2024-04-14 10:58 | Outpatient (CLI) | payer OTHER, SELFPAY | END 2024-04-14 10:59 | disposition home or self-care (01) | LOC: MAMMO 10:59 | PROVIDERS: PCP Registered Nurse; Visit Provider Family Medicine | DX: Z12.31 Encounter for screening mammogram for malignant neoplasm of breast (principal); R92.333 Mammographic heterogeneous density, bilateral breasts | CPT/HCPCS: 77063; 77067; 80048; 80061; 84443 ==